=== PATIENT | male | born 1960 | race Caucasian/White ===

== ENCOUNTER 2017-01-07 07:33 | Outpatient (CLI) | payer OTHER ==
[~2017-01-07] VITALS: Ht 175.3 cm; Wt 88.6 kg
--- NOTE | ~2017-01-07 | HEMODYNAMI ---
PATIENT:COLIN STORM MEDICAL RECORD: [id number] : 60 LOCATION:D.CAT ADMISSION DATE: 01/07/17 Generatedon:01/07/201714:39 Patient name: COLIN STORM Patient #: [id number] SSN: : 1960 Date of study: 01/07/2017 Page: Of Hemodynamic Procedure Report Patient Data Patient Demographics Procedure consent was obtained First Name: COLIN Gender: Male Last Name: EMETERIO : 1960 [facility] Initial: NICOL Age: 56 year(s) Patient #: [id number] Race: Additional ID: [id number] Contact details [address]: [address] [place] [address] State: [place] City: [place] Zip code: [address] Past Medical History History of disease Date Diagnosis Comments CAD PVD Chronic lung disease->COPD Hypertension Allergies: No known allergies Admission Admission Data Admission Date: 01/07/2017 Admission Time: 7:33 Weight (lbs.): 196.21 Weight (kg.): 89 Lab Results Lab Result Date: 01/07/2017 Lab Result Time: 0:00 Biochemistry Name Units Result Min Max BUN mg/dl 16 --(---*)-- 7 18 Creatinine mg/dl 1 --(--*-)-- 0.6 1.3 CBC Name Units Result Min Max Hemoglobin g/dl 14.9 --(-*--)-- 13.5 17.5 Procedure Procedure Types Cath Procedure Diagnostic Procedure LHC LHC w/Coronaries w/Grafts Miscellaneous Procedures Moderate Sedation up to 30 minutes Peripheral Cath Diagnostic Procedure Cath Peripheral [place]-Szp-Off Peripheral vascular Intervention Stent Stent Iliac w/plasty Initial Procedure Description Procedure Date Procedure Date: 01/07/2017 Procedure Start Time: 14:07 Procedure End Time: 14:34 Procedure Staff Name Function Devon Calderón MD Performing Physician Luna Hill RN Nurse Kurt Chang RT Monitor Tl Pires RT Scrub Procedure Data Cath Procedure Fluoroscopy Diagnostic fluoroscopy Total fluoroscopy Time: 9.7 time: 9.7 min min Diagnostic fluoroscopy Total fluoroscopy dose: 847 dose: 847 mGy mGy Contrast Material Contrast Material Type Amount (ml) Isovue 300 172 Entry Location Entry Primary Successful Side Size Upsize 1 Upsize Entry Closure Munoz ccessful Closure Location (Fr) (Fr) 2 (Fr) Remarks Device Remarks Femoral Right 5 Fr 6 Fr 6 Fr Exoseal artery Mid-Length Short Diagnostic catheters Device Type Used For End Catheter Placement Cordis 5Fr 3DRC Catheter Right Coronary (MP) Angiography Diagnostic Infinity 5Fr SVG Angiography AR 2 MOD catheter Cordis 5Fr JL 4.0 Left Coronary Catheter (MP) Angiography Cordis 5Fr Pigtail LV Angiography Catheter (MP) Procedure Complications No complications Procedure Medications Medication Administration Route Dosage Oxygen NC 2 l/min Heparin Flush Bag added to field 2 bags (1000units/500ml NS) Lidocaine 2% added to field 20 Refer to Anesthesia Notes for Sedation Medications Benadryl I.V. 50 mg Heparin Bolus I.V. 4000 units Effient P.O. 10 mg Hemodynamics Rest HGB: 14.9 (g/dl) Heart Rate: 69 (bpm) Snapshots Pre Cath Intra NCS Post Cath Vital Signs Time Heart Resp SPO2 NIBP (mmHg) Rhythm Pain Sedation Rate (ipm) (%) Status Level (bpm) 13:50:23 89 25 99 186/102(154) NSR 0 (11) 10(A) , No pain 13:54:55 78 20 100 170/98(112) NSR 0 (11) 10(A) , No pain 13:59:09 93 16 91 137/76(110) NSR 0 (11) 10(A) , No pain 14:03:23 91 16 92 125/75(94) NSR 0 (11) 8(A) , No pain 14:07:33 89 14 93 128/75(89) NSR 0 (11) 6(A) , No pain 14:11:43 86 12 93 123/70(93) NSR 0 (11) 6(A) , No pain 14:15:55 87 13 93 117/69(85) NSR 0 (11) 6(A) , No pain 14:20:07 84 14 93 116/64(85) NSR 0 (11) 6(A) , No pain 14:24:20 85 15 94 104/66(79) NSR 0 (11) 6(A) , No pain 14:28:28 83 16 94 117/68(86) NSR 0 (11) 9(A) , No pain 14:33:11 78 17 98 142/78(105) NSR 0 (11) 10(A) , No pain Medications Time Medication Route Dose Verified Delivered Reason Notes Effectiveness by by 13:49:10 Oxygen NC 2 Devon Luna Per physician l/min Stephane Hill RN 13:49:20 Heparin Flush added 2 Devon Devon used for Bag to bags Stephane Calderón MD procedure (1000units/500ml field NS) 13:49:26 Lidocaine 2% added 20ml Devon Devon used for to vial Stephane Calderón MD procedure field 13:49:41 Refer to Devon Osorio for sedation Dr. Almaguer ss Anesthesia Notes Stephane Calderón MD at for Sedation bedside Medications for sedation 13:49:49 Benadryl I.V. 50 mg Devon Luna Per physician Stephane Hill RN 14:21:11 Heparin Bolus I.V. 4000 Devon Luna for dose units Stephane Hill RN anticoagulation verified with dr calderón 14:33:42 Effient P.O. 10 mg Devon Luna for Stephane Hill RN antiplatelet therapy Procedure Log Time Note 13:20:38 Kurt Chang RT(R) sent for patient. Start room use. 13:36:54 Time tracking: Regular hours 13:36:58 Plan of Care:Hemodynamics will remain stable., Cardiac rhythm will remain stable., Comfort level will be maintained., Respiratory function will remain adequate., Patient/ family verbilizes understanding of procedure., Procedure tolerated without complication., Recovers from procedure without complications.. 13:38:41 Patient Weight : 89 kg 13:40:50 Patient received from PCU to CCL 2 Alert and oriented. Tansferred to table in Supine position. 13:40:52 Warm blankets applied, and nirmala hugger turned on for patient comfort. 13:40:52 Correct patient and procedure confirmed by team. 13:40:54 Signed procedure consent form obtained from patient. 13:40:54 ECG and BP/O2 sat monitors applied to patient. 13:49:01 Vital chart was started 13:49:02 Baseline sample Acquired. 13:49:10 Oxygen 2 l/min NC was administered by Luna Hill RN; Per physician; 13:49:20 Heparin Flush Bag (1000units/500ml NS) 2 bags added to field was administered by Devon Calderón MD; used for procedure; 13:49:26 Lidocaine 2% 20ml vial added to field was administered by Devon Calderón MD; used for procedure; 13:49:41 Refer to Anesthesia Notes for Sedation Medications was administered by Devon Calderón MD; for sedation; Dr. Garrison at bedside for sedation 13:49:49 Benadryl 50 mg I.V. was administered by Luna Hill RN; Per physician; 13:55:45 Rhythm: sinus rhythm 13:55:46 Full Disclosure recording started 13:57:44 H&P Date Dictated: 01/04/2017 Within 30 days and on chart., H&P Addendum completed by physician on day of procedure. (MUST COMPLETE FOR ALL OUTPATIENTS). 13:57:46 Pre-procedure instructions explained to patient. 13:57:47 Pre-op teaching completed and patient verbalized understanding. 13:57:50 Family unavailable. 13:57:52 Patient NPO since Midnight. 13:58:04 Patient allergic to No known allergies 13:58:08 Is the patient allergic to Iodine/contrast media? No. 13:58:09 Is patient on blood thinner?Yes 13:58:12 ACC The patient was administered the following blood thiners within the last 24 hours: ACCEffient 13:58:20 Patient diabetic? No. 13:58:21 ----Pre-sedation anethsthesia assessment.---- 13:58:24 Previous problem with sedation/anesthesia? No ? 13:58:25 Snore? Yes 13:58:27 Sleep apnea? Yes 13:58:29 Deviated septum? No 13:58:32 Opens mouth fully? Yes 13:58:33 Sticks out tongue? Yes 13:58:35 Airway obstruction? No ? 13:58:37 Dentures? No ? 13:58:40 Pre procedure: right dorsailis pedis pulse 1+ Palpable, but thready & weak; easily obliterated 13:58:43 Pre procedure: left dorsailis pedis pulse 1+ Palpable, but thready & weak; easily obliterated 13:58:46 Patient pain scale 0/10 ?. 13:58:51 IV patent on arrival in left antecubital with 0.9% NaCl at 10ml/hr. 14:00:01 Lab Result : BUN 16 mg/dl 14:00:01 Lab Result : Creatinine 1 mg/dl 14:00:01 Lab Result : Hemoglobin 14.9 g/dl 14:00:04 Lab results completed and on chart. 14:00:06 Bilateral groins area was prepped with chlora-prep and draped in sterile fashion 14:00: Alarms reviewed by R. N. 14:00: Sharps counted by scrub and verified by R.N. 14:00:10 --------ALL STOP TIME OUT------ 14:00:11 Final Timeout: patient, procedure, and site verified with staff and physician. All members of the team are in agreement. 14:00:13 Bilateral groins site verified by team. 14:00:15 Physical assessment completed. ASA score P 2 - A patient with mild systemic disease as per Devon Calderón MD. 14:00:18 Sedation plan: IV Moderate Sedation Propofol 14:02:12 Use device set Femoral Dx 14:02:12 Acist Syringe opened to sterile field. 14:02:13 Bag Decanter opened to sterile field. 14:02:13 Medline Cath Pack opened to sterile field. 14:02:14 Terumo 5Fr [place] Sheath opened to sterile field. 14:02:14 [place] John 260cm J .035 wire opened to sterile field. 14:02:16 Acist Hand Control opened to sterile field. 14:02:16 Acist Manifold opened to sterile field. 14:02:16 Diagnostic Infinity 5Fr Multipack catheter opened to sterile field. 14:02:17 Tegaderm 4 x 4 opened to sterile field. 14:05:55 Procedure started. 14:07:45 Local anesthetic to right femoral artery with Lidocaine 2% by Devon Calderón MD.INITIAL ACCESS ONLY 14:07:51 A 5 Fr sheath was inserted into the Right Femoral artery 14:09:06 Terumo ANGLE 260cm glide wire opened to sterile field. 14:09:53 A Cordis 5Fr 3DRC Catheter (MP) was advanced over the wire and used for Right Coronary Angiography. 14:09:59 RCA angiography performed. 14:12:51 SHAH to LAD angiography performed. 14:12:53 Catheter removed. 14:12:59 A Diagnostic Infinity 5Fr AR 2 MOD catheter was advanced over the wire and used for SVG Angiography. 14:13:05 SVG to RCA angiography performed. 14:13:56 Catheter removed. 14:14:53 A Cordis 5Fr JL 4.0 Catheter (MP) was advanced over the wire and used for Left Coronary Angiography. 14:15:00 LCA angiography performed. 14:15:49 Catheter removed. 14:15:54 A Cordis 5Fr Pigtail Catheter (MP) was advanced over the wire and used for LV Angiography. 14:15:58 LV angiography performed. 14:16:00 LV gram done using SUN 14:16:03 Injector settings: Ml/sec: 10, Volume: 20, 14:18:00 EF : 40 % 14:18:11 Abdominal angiogram w/ runoff was performed. 14:18:14 Left leg runoff performed. 14:18:15 Right leg runoff performed. 14:18:38 Cordis 6Fr Brite Tip 35cm Sheath opened to sterile field. 14:18:53 Terumo 6Fr [place] Sheath opened to sterile field. 14:20:06 Merit BasixCompak Inflation Kit opened to sterile field. 14:20:14 [place] Sci Choice PT Extra Support J 300cm .014 gu opened to sterile field. 14:20:45 Sheath upsized to a 6 Fr Mid-Length. 14:21:11 Heparin Bolus 4000 units I.V. was administered by Luna Hill RN; for anticoagulation; dose verified with dr calderón 14:24:04 CPTES wire advanced. 14:27:11 Inflation number: 1 A Cordis Powerflex Pro 6.0 X 20 X 135 balloon was prepped and advanced across the Mid Common Iliac, Right, then inflated to 11 MADISYN for 0:11 (min:sec). 14:27:20 Inflation number: 2 The Cordis Powerflex Pro 6.0 X 20 X 135 balloon was reinflated across the Mid Common Iliac, Right, to 11 MADISYN for 0:09 (min:sec). 14:27:23 Balloon removed over the wire. 14:29:04 Inflation Number: 3 A Cordis Araceli 7 x 18 x 135 stent was prepped and advanced across the Mid Common Iliac, Right. The stent was deployed at 11 MADISYN for 0:37 (min:sec). 14:29:15 Stent catheter was removed intact over wire. 14:29:24 Wire removed. 14:29:30 Sheath upsized to a 6 Fr Short. 14::38 Contrast amount:Isovue 300 172ml. 14:29:45 Sheath removed intact; hemostasis achieved with Exoseal to the Right Femoral artery. 14:29:55 Cordis 6Fr Exoseal opened to sterile field. 14:29:58 Procedure ended.(Physican Out) 14:31:27 Procedure type changed to Cath procedure, Diagnostic procedure, LHC, LHC w/Coronaries w/Grafts, Miscellaneous Procedures, Moderate Sedation up to 30 minutes, Peripheral Cath Diagnostic Procedure, Cath Peripheral, Edyrp-Obtfgxo-Eou-Off, Peripheral vascular Intervention, Stent, Stent Iliac w/plasty Initial 14:31:34 Fluoroscopy time 09.70 minutes. 14::38 Fluoroscopy dose: 847 mGy 14::38 Flurop Dose total: 847 14:31:40 Sharps counted by scrub and verified by R.N. 14:31:41 Insertion/operative site no bleeding no hematoma. 14:31:44 Post-op/insertion site Right Femoral artery dressed using a 4 x 4 and Tegaderm. 14:31:47 Post right femoral artery:stable 14:31:48 Post Procedure Pulses reassessed and unchanged 14:31:50 Post procedure rhythm: sinus rhythm 14:31:52 Post procedure instruction explained to patient.Patient verbalizes understanding. 14:33:42 Effient 10 mg P.O. was administered by Luna Hill RN; for antiplatelet therapy; 14:33:58 Procedure and supply charges have been captured, reviewed, submitted and are correct. 14:34:03 Procedure Complication : No complications 14:34:04 Vital chart was stopped 14:34:06 See physician's report for complete and final results. 14:34:13 Report given to Pre/Post Procedure Room. 14:34:16 Patient transfered to Pre/Post Procedure Room with Stretcher. 14:34:18 Procedure ended. 14:34:18 Full Disclosure recording stopped 14:34:27 End room use (Document Last) Intervention Summary Intervention Notes Time ActionType Lesion and Equipment Action# Pressure Duration Attributes Used 14:27:11 Inflate Mid Common Cordis 1 11 00:11 balloon Iliac, Powerflex Right Pro 6.0 X 20 X 135 balloon 14:27:20 Reinflate Mid Common Cordis 2 11 00:09 balloon Iliac, Powerflex Right Pro 6.0 X 20 X 135 balloon 14:29:04 Place stent Mid Common Cordis 3 11 00:37 Iliac, Araceli 7 Right x 18 x 135 stent Device Usage Item Name Manufacture Quantity Catalog Number Hospital Part Current Minim al Lot# / Charge Number Stock Stock Serial# Code Acist Acist 1 [id number] 488913 674013 817560 20 Syringe Medical Systems Inc Bag Microtek 1 2002S 294164 91181 075185 5 [employer] Medline Cardinal 1 [id number] 272982 36748 268943 5 Cath Pack Health Terumo 5Fr Terumo 1 [id number] 168170 710526 778226 [address] [place] [address] [facility] 1 114383 670489 420718 289909 30 260cm J .035 wire Acist Hand Acist 1 91891 255776 204103 595323 5 Control Medical Systems Inc Acist Acist 1 81399 336100 829094 573928 5 Renaissance [employer] Inc Diagnostic Cardinal 1 [id number] 458394 25059 955657 30 Infinity Health 5Fr Multipack catheter Tegaderm 4 3M 1 1626W 442198 681680 103973 5 x 4 Terumo Terumo 1 [id number] 047242 879751 203777 5 ANGLE 260cm glide wire Cordis 5Fr Cardinal 1 858606 5 3DRC Health Catheter (MP) Diagnostic Cardinal 1 [id number] 808162 114625 122994 20 Infinity Health 5Fr AR 2 MOD catheter Cordis 5Fr Cardinal 1 671234 5 JL 4.0 Health Catheter (MP) Cordis 5Fr Cardinal 1 901455 5 Pigtail Health Catheter (MP) Cordis 6Fr Cardinal 1 [id number] 702393 707741 361442 1 Brite Tip Health 35cm Sheath Terumo 6Fr Terumo 1 [id number] 762971 387783 418335 40 [place] Sheath Merit Merit 1 KI3933 778609 452080 944813 15 BasixCompak Medical Inflation Kit [place] Sci [place] 1 [id number] 053361 456906 165031 5 Choice PT Scientific Extra Support J 300cm .014 gu Cordis Cardinal 1 [id number] 619712 408045 680589 5 Powerflex Health Pro 6.0 X 20 X 135 balloon Cordis Cardinal 1 [id number] 190230 469604 5 [id number] Araceli 7 x Health 18 x 135 stent Cordis 6Fr Cardinal 1 [id number] 879114 866976 630387 10 [facility] [employer] Signature Audit [place] Stage Time Signature Unsigned Intra-Procedure 01/07/2017 Kurt Chang 2:39:11 PM RT(R) Signatures Monitor : Kurt Chang RT Signature : Date : Time : [address] [place] [address]
--- NOTE | ~2017-01-07 | OP ---
PATIENT NAME: COLIN STORM MEDICAL RECORD: [id number] :60 LOCATION:D.CAT ADMISSION DATE: SURGEON: TEAGAN LEWIS MD DATE OF OPERATION: 01/07/2017 PROCEDURES: 1. Stent placement, iliac, right. 2. LOCK TECHNICIAN, iliac right. 3. Aortofemoral runoff. 4. Abdominal aortography. INDICATION: Claudication and peripheral vascular disease. PROCEDURE PERFORMED: After informed consent was obtained and after detailed explanation of the risks, benefits as well as alternative therapies, the patient elected to proceed with angiogram and angioplasty. The right femoral area was prepped and draped in normal sterile fashion. The right femoral artery was cannulated via modified Seldinger technique with placement of a 6-Guinean sheath. All catheters were exchanged through this sheath. FINDINGS: The abdominal aortography was performed. The catheter was pulled down for aortofemoral runoff. Abdominal aortography reveals no significant abdominal aortic disease. No dissection or aneurysm formation. RIGHT LEG: A. Iliac: The common iliac is closed. There is an aortobifemoral graft. There is a stent in this graft that is 90% stenosed. B. Femoral system: The common superficial and deep femoral have moderate irregularities, but no flow-limiting stenosis. No significant disease of the SFA. C. Popliteal and infrapopliteal vessels: Patent with good 3-vessel runoff to the foot. LEFT LEG: A. Iliac: The common internal and external iliacs are closed. There is an aortofemoral graft, this is widely patent. B. Femoral system: The common superficial and deep femoral have moderate irregularities, but no flow-limiting stenosis. Previously placed stent is widely patent. C. Popliteal and infrapopliteal vessels: With 3-vessel runoff to the foot. STENT PLACEMENT, ILIAC RIGHT. We were able to get a 6.0 balloon and a ____ Cordis Araceli balloon expandable stent into this area of stenosis. Result was 0% residual stenosis. OVERALL IMPRESSION: Successful percutaneous transluminal angioplasty stent of the right iliac going from 90% initial stenosis to 0% residual. TRANSINT:[id number] Voice Confirmation ID: [id number] DOCUMENT ID: [id number] OPERATIVE REPORT [id number] COLIN STORM TEAGAN LEWIS MD CC: [id number] DICTATION DATE: 01/07/17 1434 BATCH AND FURNACE MANAGER: 01/08/17 0030 DEP CLI 05/19/17 [facility] [address] [place] [address]
--- NOTE | ~2017-01-07 | OP ---
PATIENT NAME: COLIN STORM MEDICAL RECORD: [id number] :60 LOCATION:D.CAT ADMISSION DATE: SURGEON: TEAGAN LEWIS MD DATE OF OPERATION: 01/07/2017 PROCEDURES: 1. Left heart catheterization. 2. Selective coronary angiography. 3. SHAH angiography. 4. Vein graft angiography. INDICATION: Angina and coronary artery disease. DESCRIPTION OF PROCEDURE: After informed consent was obtained and after detailed explanation of risks, benefits as well as alternative therapies, the patient elected to proceed with angiogram and heart catheterization. The right femoral area was prepped and draped in normal sterile fashion. The right femoral artery was cannulated via modified Seldinger technique with placement of a 6-Zambian sheath. All catheters were exchanged through this sheath. FINDINGS: Left ventriculogram was performed in standard 30-degree SUN view, reveals preserved cardiac wall motion, ejection fraction 55%. SELECTIVE CORONARY ANGIOGRAPHY: 1. Left main showed no significant angiographic disease. 2. Left circumflex is closed. 3. Vein graft to the circumflex is closed. 4. Left anterior descending is closed in the mid vessel. 5. SHAH to the distal LAD is widely patent. 6. The right coronary is closed in the mid vessel. 7. Vein graft to the right coronary is widely patent. Distal right coronary is widely patent. Overall, this angiography is unchanged from previous angiography. OVERALL IMPRESSION: Wide patency of the SHAH to the LAD and vein graft to the RCA with total occlusion of the lytton circumflex and vein graft to the circumflex. Continue medical management of the coronary artery disease and cardiac risk factors. TRANSINT:[id number] Voice Confirmation ID: [id number] DOCUMENT ID: [id number] TEAGAN LEWIS MD CC: [id number] DICTATION DATE: 01/07/171433 OVEREDGE SEWER: 01/07/172230 DEP CLI 01/07/17 [facility] [address] [place] [address]
[~2017-01-07 07:33] MED LIST: ASPIRIN325 MG PO; CORDARONE200 MG PO; DURAGESIC1 PATCH .7; DURAGESIC1 PATCH .7 TRANSDERM; EFFIENT10 MG PO; HYDROCODONE-APA1 TAB PO; IPRAT-ALBUT 0.5-3 ML UPD; ISOSORBIDE MONO60 M1 PO; K-TAB10 MEQ PO; LANOXIN250 MCG PO; LASIX40 MG PO; LOPRESSOR50 MG PO; METOPROLOL TART50 MG PO; NEXIUM PO; NEXIUM20 MG PO; NORVASC10 MG PO; PERCOCET 5-3251 TAB PO; PLAVIX75 MG PO; PRAVACHOL80 MG PO; PRAVASTATIN PO; PREDNISONE20 MG PO; PRILOSEC20 MG PO; RANEXA500 MG PO; RENEXA PO; TOPROL XL25 MG PO; TOPROL XL50 MG PO
[2017-01-07 08:21] VITALS: BP 161/81; Ht 175.3 cm; Wt 88.6 kg
[2017-01-07 08:30] LABS: BASOPHILS 0.3 % (0-2); EOSINOPHILS 1.4 % (0-7); HEMATOCRIT 45.4 % (42.0-54.0); HEMOGLOBIN 14.9 g/dL (13.5-17.5); IMMATURE GRANULOCYTES 0.2 % (0-5); LYMPHOCYTES 26.8 % (15-50); MCH 27.7 pg (26.0-34.0); MCHC 32.8 g/dL (31.0-37.0); MCV 84.5 fL (80.0-100.0); MEAN PLATELET VOLUME 10.2 fL (7.4-10.4); MONOCYTES 7.1 % (2-11); NEUTROPHILS 64.2 % (40-80); PLATELET COUNT 175 10x3/uL (130-400); RBC 5.37 10x6/uL (4.20-6.10); RDW 13.9 % (11.5-14.5); WBC 9.4 10x3/uL (4.8-10.8)
[2017-01-07] MEDS ORDERED: PRILOSEC PO (08:33)
[2017-01-07] MEDS ORDERED: PRAVACHOL80 MG PO (08:34)
[2017-01-07 09:01] LABS: CALC OSMOLALITY 279 mosm/kg (275-300); CALCIUM 9.8 mg/dL (8.5-10.1); CARBON DIOXIDE 27.2 mmol/L (21.0-32.0); CHLORIDE - SERUM 103 mmol/L (98-107); GLUCOSE 122 mg/dL (74-106); POTASSIUM - SERUM 4.4 mmol/L (3.5-5.1); SODIUM 139 mmol/L (136-145); UREA NITROGEN 16 mg/dL (7-18); eGFR NON AFRICAN AMERICAN 82 mL/min (90-120)
--- NOTE | 2017-01-07 15:24 | NUR ---
1510 LYING FLAT, EYES CLOSED. ROOM AIR WITH NO RESP DISTRESS. NSR RATE 70 W NO C/O CHEST PAIN. PULSES PALP X 4. R GROIN 6F EXOSEAL C/D/I WITH NO HEMATOMA OR BLEEDING.
--- NOTE | 2017-01-07 16:52 | NUR ---
1540 ALL VITALS WNL, NSR MARY 81 W NO C/O CHEST PAIN. PULSES PALP X 4. ROOM AIR. R GROI REMAINS C/D/I WITH NO HEMATOMA OR BLEEDING. VOIDED 400CC VIA URINAL. 1640 SLEEPING, AT BEDSIDE, R GROIN REMAINS C/D/I.
--- NOTE | 2017-01-07 17:45 | NUR ---
HOB ELEVATED 30 DEGREES. RIGHT GROIN DRSG CDI, NO BLEEDING NOTED. SANDWICH TRAY AND SPRITE GIVEN.
--- NOTE | 2017-01-07 18:11 | NUR ---
LEFT HAND PIV D/C'D WITH CATHETER INTACT, BAND AID TO SITE. UP TO BEDSIDE TO GET DRESSED.
--- NOTE | 2017-01-07 18:20 | NUR ---
UP TO RESTROOM TO VOID.
--- NOTE | 2017-01-07 18:24 | NUR ---
DISCHARGE INSTRUCTIONS GIVEN, VERBALIZED UNDERSTANDING.
--- NOTE | 2017-01-07 18:27 | NUR ---
TAKEN OUT VIA WHEELCHAIR BY CATH COOK'S ASSISTANT. LEFT FACILITY WITH FAMILY MEMBER AND ALL PERSONAL BELONGINGS.
== END 2017-01-07 18:28 | disposition home or self-care (01) ==
LOC: D.CATH 07:33
PROVIDERS: Internal Medicine Interventional Cardiology
DX: I25.119 Atherosclerotic heart disease of native coronary artery with unspecified angina pectoris (principal); I25.719 Atherosclerosis of autologous vein coronary artery bypass graft(s) with unspecified angina pectoris; I70.211 Atherosclerosis of native arteries of extremities with intermittent claudication, right leg

== ENCOUNTER 2017-03-30 10:44 | Emergency (ER) | payer OTHER ==
[2017-01-07 08:21] VITALS: BMI 28.8
[~2017-03-30 10:44] MED LIST changes: +PRILOSEC PO
[2017-03-30 11:47] LABS: BASOPHILS 0.2 % (0-2); EOSINOPHILS 0.5 % (0-7); HEMATOCRIT 43.1 % (42.0-54.0); HEMOGLOBIN 13.9 g/dL (13.5-17.5); IMMATURE GRANULOCYTES 0.2 % (0-5); LYMPHOCYTES 16.8 % (15-50); MCH 26.8 pg (26.0-34.0); MCHC 32.3 g/dL (31.0-37.0); MONOCYTES 7.4 % (2-11); NEUTROPHILS 74.9 % (40-80); PLATELET COUNT 151 10x3/uL (130-400); RBC 5.19 10x6/uL (4.20-6.10); WBC 8.7 10x3/uL (4.8-10.8)
[2017-03-30 11:59] LABS: ALBUMIN 3.3 g/dL (3.4-5.0); ALKALINE PHOSPHATASE 105 U/L (46-116); ALT (SGPT) 22 U/L (10-68); BILIRUBIN - TOTAL 0.43 mg/dL (0.2-1.3); C-REACTIVE PROTEIN 1.5 mg/dL (0.0-0.9); CALC OSMOLALITY 279 mosm/kg (275-300); CALCIUM 8.6 mg/dL (8.5-10.1); CARBON DIOXIDE 28.6 mmol/L (21.0-32.0); CHLORIDE - SERUM 104 mmol/L (98-107); CREATININE - SERUM 0.8 mg/dL (0.6-1.3); GLUCOSE 133 mg/dL (74-106); MAGNESIUM - SERUM 1.9 mg/dL (1.8-2.4); POTASSIUM - SERUM 4.3 mmol/L (3.5-5.1); PROTEIN - SERUM 7.2 g/dL (6.4-8.2); SODIUM 139 mmol/L (136-145); UREA NITROGEN 12 mg/dL (7-18); eGFR NON AFRICAN AMERICAN > 90 mL/min (90-120)
== END 2017-03-30 14:03 | disposition home or self-care (01) ==
LOC: D.ER 10:44
PROVIDERS: Emergency Medicine
DX: R42 Dizziness and giddiness (principal); R11.10 Vomiting, unspecified; I10 Essential (primary) hypertension; Z95.1 Presence of aortocoronary bypass graft; Z95.5 Presence of coronary angioplasty implant and graft; R00.1 Bradycardia, unspecified; R94.31 Abnormal electrocardiogram [ECG] [EKG]

== ENCOUNTER → 2017-07-11 12:47 | Outpatient (CLI) | payer OTHER ==
[2017-01-07 08:21] VITALS: BMI 28.8
== END | disposition home or self-care (01) ==
LOC: D.US 12:47
DX: Z86.73 Personal history of transient ischemic attack (TIA), and cerebral infarction without residual deficits (principal)

== ENCOUNTER 2018-03-29 01:04 | Inpatient (IN) | payer OTHER ==
[2018-03-29] VITALS (7 sets, daily range): BP systolic 133–152; BP diastolic 68–78; BMI 28.8
[~2018-03-29] VITALS: Ht 175.3 cm; Wt 88.3 kg
[2018-03-29 01:45] LABS: BASOPHILS 0.2 % (0-2); EOSINOPHILS 0.7 % (0-7); HEMATOCRIT 40.7 % (42.0-54.0); HEMOGLOBIN 13.4 g/dL (13.5-17.5); IMMATURE GRANULOCYTES 0.2 % (0-5); LYMPHOCYTES 24.4 % (15-50); MCH 26.6 pg (26.0-34.0); MCHC 32.9 g/dL (31.0-37.0); MCV 80.9 fL (80.0-100.0); MEAN PLATELET VOLUME 9.5 fL (7.4-10.4); MONOCYTES 8.7 % (2-11); NEUTROPHILS 65.8 % (40-80); PLATELET COUNT 140 10x3/uL (130-400); RBC 5.03 10x6/uL (4.20-6.10); RDW 14.8 % (11.5-14.5); WBC 9.4 10x3/uL (4.8-10.8)
[2018-03-29 01:52] LABS: APTT 28.2 SECONDS (22.8-39.4); INR 1.07 (0.85-1.17); PROTIME 13.5 SECONDS (11.6-15.0)
[2018-03-29 01:56] LABS: ALBUMIN 3.5 g/dL (3.4-5.0); ALKALINE PHOSPHATASE 106 U/L (46-116); ALT (SGPT) 28 U/L (10-68); BILIRUBIN - TOTAL 0.55 mg/dL (0.2-1.3); CALC OSMOLALITY 282 mosm/kg (275-300); CALCIUM 8.5 mg/dL (8.5-10.1); CARBON DIOXIDE 30.1 mmol/L (21.0-32.0); CHLORIDE - SERUM 104 mmol/L (98-107); CREATININE - SERUM 0.8 mg/dL (0.6-1.3); GLUCOSE 123 mg/dL (74-106); PROTEIN - SERUM 7.1 g/dL (6.4-8.2); SODIUM 141 mmol/L (136-145); UREA NITROGEN 16 mg/dL (7-18); eGFR NON AFRICAN AMERICAN > 90 mL/min (90-120)
[2018-03-29 02:05] LABS: AMYLASE - SERUM 189 U/L (25-115); CREATINE KINASE 70 UL (21-232); LIPASE 1442 U/L (73-393)
[2018-03-29 02:08] LABS: TROPONIN-I < 0.017 ng/mL (0.000-0.060)
[2018-03-29 05:56] LABS: BASOPHILS 0.2 % (0-2); EOSINOPHILS 0.5 % (0-7); HEMATOCRIT 39.7 % (42.0-54.0); HEMOGLOBIN 12.7 g/dL (13.5-17.5); IMMATURE GRANULOCYTES 0.2 % (0-5); LYMPHOCYTES 30.5 % (15-50); MCH 26.2 pg (26.0-34.0); MCV 81.9 fL (80.0-100.0); MEAN PLATELET VOLUME 9.9 fL (7.4-10.4); MONOCYTES 9.3 % (2-11); NEUTROPHILS 59.3 % (40-80); PLATELET COUNT 140 10x3/uL (130-400); RBC 4.85 10x6/uL (4.20-6.10); WBC 9.7 10x3/uL (4.8-10.8)
[2018-03-29 06:43] LABS: ALBUMIN 3.3 g/dL (3.4-5.0); ALKALINE PHOSPHATASE 133 U/L (46-116); CALC OSMOLALITY 283 mosm/kg (275-300); CALCIUM 7.8 mg/dL (8.5-10.1); CARBON DIOXIDE 28.2 mmol/L (21.0-32.0); CHLORIDE - SERUM 106 mmol/L (98-107); CREATININE - SERUM 0.9 mg/dL (0.6-1.3); GLUCOSE 130 mg/dL (74-106); PROTEIN - SERUM 6.7 g/dL (6.4-8.2); SODIUM 141 mmol/L (136-145); UREA NITROGEN 15 mg/dL (7-18); eGFR NON AFRICAN AMERICAN > 90 mL/min (90-120)
[2018-03-29 07:06] LABS: CKMB 0.8 U/L (0.0-3.6); CREATINE KINASE 65 UL (21-232)
[2018-03-29 07:08] LABS: TROPONIN-I < 0.017 ng/mL (0.000-0.060)
[2018-03-29 07:36] LABS: ALT (SGPT) 51 U/L (10-68); AMYLASE - SERUM 353 U/L (25-115)
[2018-03-29 07:55] LABS: LIPASE 4456 U/L (73-393)
[2018-03-29 12:24] LABS: CKMB 1.1 U/L (0.0-3.6); CREATINE KINASE 61 UL (21-232)
[2018-03-29 12:25] LABS: TROPONIN-I < 0.017 ng/mL (0.000-0.060)
[2018-03-29 19:00] LABS: CREATINE KINASE 56 UL (21-232); TROPONIN-I < 0.017 ng/mL (0.000-0.060)
[2018-03-30 06:11] VITALS: BP 152/70
[2018-03-30 06:16] LABS: BASOPHILS 0.3 % (0-2); EOSINOPHILS 1.2 % (0-7); HEMATOCRIT 37.2 % (42.0-54.0); HEMOGLOBIN 11.9 g/dL (13.5-17.5); IMMATURE GRANULOCYTES 0.2 % (0-5); LYMPHOCYTES 24.9 % (15-50); MCH 26.6 pg (26.0-34.0); MCV 83.2 fL (80.0-100.0); MEAN PLATELET VOLUME 10.5 fL (7.4-10.4); NEUTROPHILS 64.4 % (40-80); PLATELET COUNT 129 10x3/uL (130-400); RBC 4.47 10x6/uL (4.20-6.10); RDW 15.1 % (11.5-14.5)
[2018-03-30 06:20] LABS: WBC 6.6 10x3/uL (4.8-10.8)
[2018-03-30 06:40] LABS: ALKALINE PHOSPHATASE 125 U/L (46-116); ALT (SGPT) 45 U/L (10-68); BILIRUBIN - TOTAL 0.65 mg/dL (0.2-1.3); CALCIUM 7.8 mg/dL (8.5-10.1); CARBON DIOXIDE 28.8 mmol/L (21.0-32.0); CHLORIDE - SERUM 107 mmol/L (98-107); CREATININE - SERUM 0.7 mg/dL (0.6-1.3); LIPASE 178 U/L (73-393); POTASSIUM - SERUM 3.8 mmol/L (3.5-5.1); PROTEIN - SERUM 6.2 g/dL (6.4-8.2); SODIUM 140 mmol/L (136-145); eGFR NON AFRICAN AMERICAN > 90 mL/min (90-120)
[2018-03-30 06:49] LABS: AMYLASE - SERUM 82 U/L (25-115); CALC OSMOLALITY 276 mosm/kg (275-300); GLUCOSE 80 mg/dL (74-106); UREA NITROGEN 11 mg/dL (7-18)
[2018-03-30 08:27] VITALS: BP 154/74
[2018-03-30 11:33] VITALS: BP 153/77
[2018-03-30 12:49] VITALS: Ht 175.3 cm; Wt 88.3 kg
[2018-03-30 16:14] VITALS: BP 160/71
[2018-03-30 21:27] VITALS: BP 106/70
[2018-03-31 02:05] VITALS: BP 160/69
[2018-03-31 04:00] VITALS: BP 154/67
[2018-03-31 05:29] LABS: BASOPHILS 0.2 % (0-2); EOSINOPHILS 1.5 % (0-7); HEMATOCRIT 35.8 % (42.0-54.0); HEMOGLOBIN 11.5 g/dL (13.5-17.5); LYMPHOCYTES 31.4 % (15-50); MCH 26.3 pg (26.0-34.0); MCHC 32.1 g/dL (31.0-37.0); MCV 81.9 fL (80.0-100.0); MEAN PLATELET VOLUME 10.4 fL (7.4-10.4); MONOCYTES 8.9 % (2-11); PLATELET COUNT 132 10x3/uL (130-400); RBC 4.37 10x6/uL (4.20-6.10); RDW 14.8 % (11.5-14.5); WBC 5.9 10x3/uL (4.8-10.8)
[2018-03-31 05:48] LABS: ALBUMIN 2.9 g/dL (3.4-5.0); ALKALINE PHOSPHATASE 148 U/L (46-116); ALT (SGPT) 39 U/L (10-68); AMYLASE - SERUM 56 U/L (25-115); BILIRUBIN - TOTAL 0.56 mg/dL (0.2-1.3); CALC OSMOLALITY 278 mosm/kg (275-300); CARBON DIOXIDE 29.9 mmol/L (21.0-32.0); CHLORIDE - SERUM 108 mmol/L (98-107); CHOL - HDL RATIO 4.7 ratio (2.3-4.9); CHOLESTEROL, TOTAL 149 mg/dL (0-200); CREATININE - SERUM 0.8 mg/dL (0.6-1.3); GLUCOSE 95 mg/dL (74-106); HDL CHOLESTEROL 32 mg/dL (32-96); LDL CHOLESTEROL 101 mg/dL (0-100); LDL-HDL RATIO 3.2 ratio (1.5-3.5); LIPASE 189 U/L (73-393); POTASSIUM - SERUM 3.8 mmol/L (3.5-5.1); PROTEIN - SERUM 6.1 g/dL (6.4-8.2); SODIUM 141 mmol/L (136-145); TRIGLYCERIDE 83 mg/dL (30-200); UREA NITROGEN 8 mg/dL (7-18); eGFR NON AFRICAN AMERICAN > 90 mL/min (90-120)
[2018-03-31 08:03] VITALS: BP 171/81
[2018-03-31 15:21] VITALS: BP 176/77
[2018-03-31 21:20] VITALS: BP 167/79
[2018-04-01] VITALS (7 sets, daily range): BP systolic 134–175; BP diastolic 57–79
[2018-04-01 06:03] LABS: BASOPHILS 0.4 % (0-2); EOSINOPHILS 0.9 % (0-7); HEMATOCRIT 35.7 % (42.0-54.0); HEMOGLOBIN 11.4 g/dL (13.5-17.5); IMMATURE GRANULOCYTES 0.2 % (0-5); LYMPHOCYTES 29.2 % (15-50); MCH 26.1 pg (26.0-34.0); MCHC 31.9 g/dL (31.0-37.0); MCV 81.7 fL (80.0-100.0); MEAN PLATELET VOLUME 10.5 fL (7.4-10.4); MONOCYTES 9.4 % (2-11); NEUTROPHILS 59.9 % (40-80); PLATELET COUNT 137 10x3/uL (130-400); RBC 4.37 10x6/uL (4.20-6.10); RDW 14.9 % (11.5-14.5); WBC 5.7 10x3/uL (4.8-10.8)
[2018-04-01 06:40] LABS: ALBUMIN 2.9 g/dL (3.4-5.0); ALKALINE PHOSPHATASE 140 U/L (46-116); ALT (SGPT) 38 U/L (10-68); AMYLASE - SERUM 44 U/L (25-115); BILIRUBIN - TOTAL 0.56 mg/dL (0.2-1.3); CALC OSMOLALITY 281 mosm/kg (275-300); CALCIUM 7.8 mg/dL (8.5-10.1); CARBON DIOXIDE 27.3 mmol/L (21.0-32.0); CHLORIDE - SERUM 108 mmol/L (98-107); CREATININE - SERUM 0.9 mg/dL (0.6-1.3); GLUCOSE 85 mg/dL (74-106); LIPASE 172 U/L (73-393); POTASSIUM - SERUM 3.6 mmol/L (3.5-5.1); PROTEIN - SERUM 6.1 g/dL (6.4-8.2); SODIUM 143 mmol/L (136-145); UREA NITROGEN 7 mg/dL (7-18); eGFR NON AFRICAN AMERICAN > 90 mL/min (90-120)
[2018-04-02 05:42] LABS: BASOPHILS 0.3 % (0-2); EOSINOPHILS 2.2 % (0-7); HEMATOCRIT 35.2 % (42.0-54.0); HEMOGLOBIN 11.4 g/dL (13.5-17.5); IMMATURE GRANULOCYTES 0.3 % (0-5); LYMPHOCYTES 27.2 % (15-50); MCH 26.3 pg (26.0-34.0); MCHC 32.4 g/dL (31.0-37.0); MCV 81.1 fL (80.0-100.0); MEAN PLATELET VOLUME 10.2 fL (7.4-10.4); MONOCYTES 9.1 % (2-11); NEUTROPHILS 60.9 % (40-80); PLATELET COUNT 158 10x3/uL (130-400); RBC 4.34 10x6/uL (4.20-6.10); RDW 14.8 % (11.5-14.5); WBC 6.7 10x3/uL (4.8-10.8)
[2018-04-02 06:23] LABS: ALBUMIN 2.9 g/dL (3.4-5.0); ALKALINE PHOSPHATASE 139 U/L (46-116); ALT (SGPT) 30 U/L (10-68); BILIRUBIN - TOTAL 0.61 mg/dL (0.2-1.3); CALC OSMOLALITY 279 mosm/kg (275-300); CALCIUM 8.2 mg/dL (8.5-10.1); CARBON DIOXIDE 27.5 mmol/L (21.0-32.0); CHLORIDE - SERUM 107 mmol/L (98-107); CREATININE - SERUM 0.8 mg/dL (0.6-1.3); GLUCOSE 86 mg/dL (74-106); POTASSIUM - SERUM 3.3 mmol/L (3.5-5.1); PROTEIN - SERUM 6.1 g/dL (6.4-8.2); SODIUM 142 mmol/L (136-145); UREA NITROGEN 6 mg/dL (7-18); eGFR NON AFRICAN AMERICAN > 90 mL/min (90-120)
[2018-04-02] MEDS ORDERED: PEPCID40 MG PO (11:01)
[2018-04-02] MEDS ORDERED: CARAFATE1 G/10 ML PO (11:01)
== END 2018-04-02 15:33 | disposition home or self-care (01) | DRG 380 ==
LOC: D.ER 01:04 → D.M2 05:31 → D.EDHOLD 05:31 → D.M2 13:49
PROVIDERS: Family Medicine; Family Medicine Adult Medicine; Internal Medicine Gastroenterology
PROC: 0DD68ZX Extraction of Stomach, Via Natural or Artificial Opening Endoscopic, Diagnostic (ICD-10-PCS; principal; 2018-04-01 09:30)
DX: K22.10 Ulcer of esophagus without bleeding (principal); K85.90 Acute pancreatitis without necrosis or infection, unspecified; I25.10 Atherosclerotic heart disease of native coronary artery without angina pectoris; I10 Essential (primary) hypertension; I73.9 Peripheral vascular disease, unspecified; E78.5 Hyperlipidemia, unspecified; E86.0 Dehydration; K22.70 Barrett's esophagus without dysplasia; K44.9 Diaphragmatic hernia without obstruction or gangrene; R91.1 Solitary pulmonary nodule; K57.90 Diverticulosis of intestine, part unspecified, without perforation or abscess without bleeding; Z95.1 Presence of aortocoronary bypass graft; Z86.73 Personal history of transient ischemic attack (TIA), and cerebral infarction without residual deficits; K25.9 Gastric ulcer, unspecified as acute or chronic, without hemorrhage or perforation

== ENCOUNTER 2018-05-31 09:18 | Outpatient (CLI) | payer OTHER ==
[~2018-05-31] VITALS: Ht 175.3 cm; Wt 86.4 kg
--- NOTE | ~2018-05-31 | HEMODYNAMI ---
PATIENT:COLIN STORM MEDICAL RECORD: [id number] : 60 LOCATION:D.CAT ADMISSION DATE: 05/31/18 Generatedon:05/31/201811:54 Patient name: COLIN STORM Patient #: [id number] SSN: : 1960 Date of study: 05/31/2018 Page: Of Hemodynamic Procedure Report Patient Data Patient Demographics Procedure consent was obtained First Name: COLIN Gender: Male Last Name: EMETERIO : 1960 [facility] Initial: NICOL Age: 58 year(s) Patient #: [id number] Race: Additional ID: [id number] Contact details [address]: [address] [place] [address] State: [place] City: [place] Zip code: [address] Past Medical History History of disease Date Diagnosis Comments CAD PVD Chronic lung disease->COPD Hypertension Allergies: No known allergies Admission Admission Data Admission Date: 05/31/2018 Admission Time: 9:18 Procedure Procedure Types Cath Procedure Peripheral Cath Diagnostic Procedure Vendor Representatives Peripheral Procedures Ldrxt-Kxqqdvj-Xet-Off UI SOFTWARE ENGINEER/STENT Peripheral Procedure Description Procedure Date Procedure Date: 05/31/2018 Procedure Start Time: 11:12 Procedure End Time: 11:50 Procedure Staff Name Function Devon Calderón MD Performing Physician Fabiana Robison RT Monitor Radha Patel RT Scrub Andres Nassar RN Nurse Dee Kapadia RN Nurse Gianna Pickard RN Nurse Mario Chang RT Commercial Green Building Architect Rainer Brandon MD Additional personnel Procedure Data Cath Procedure Fluoroscopy Diagnostic fluoroscopy Total fluoroscopy Time: 7.5 time: 7.5 min min Diagnostic fluoroscopy Total fluoroscopy dose: 534 dose: 534 mGy mGy Contrast Material Contrast Material Type Amount (ml) Isovue 300 97 Entry Location Entry Primary Successful Side Size Upsize 1 Upsize Entry Closure Munoz ccessful Closure Location (Fr) (Fr) 2 (Fr) Remarks Device Remarks Femoral Right 5 Fr 6 Fr 6 Fr Exoseal artery Mid-Length Short Estimated blood loss: 10 ml Diagnostic catheters Device Type Used For End Catheter Placement DIAGNOSTIC Pigtail 5Fr Procedure catheter ([id number]) Procedure Complications No complications Procedure Medications Medication Administration Route Dosage Heparin Bolus I.V. 4000 units Oxygen etCO2 Nasal cannula 6 l/min Heparin Flush Bag added to field 2 bags (1000units/500ml NS) 0.9% NaCl I.V. 100 ml/hr Refer to Anesthesia Notes for Sedation Medications Hemodynamics Rest Heart Rate: 61 (bpm) Snapshots Pre Cath Intra NCS Post Cath Vital Signs Time Heart Resp SPO2 etCO2 NIBP (mmHg) Rhythm Pain Sedation Rate (ipm) (%) (mmHg) Status Level (bpm) 10:52:52 61 17 99 0 172/99(143) NSR 0 (11) 10(A) , No pain 10:57:20 70 17 98 0 165/87(111) NSR 0 (11) 10(A) , No pain 11:03:00 70 16 100 0 166/82(105) NSR 0 (11) 10(A) , No pain 11:07:20 77 17 94 0 124/76(100) NSR 0 (11) 10(A) , No pain 11:11:40 72 17 98 0 119/67(99) NSR 0 (11) 10(A) , No pain 11:15:56 75 16 99 16.4 133/73(96) NSR 0 (11) 10(A) , No pain 11:20:16 68 17 99 35 136/76(99) NSR 0 (11) 10(A) , No pain 11:24:32 77 16 98 14.1 134/73(98) NSR 0 (11) 10(A) , No pain 11:28:44 86 16 98 0 113/72(92) NSR 0 (11) 9(A) , No pain 11:33:00 83 17 96 0 114/63(87) NSR 0 (11) 9(A) , No pain 11:37:16 85 17 96 0 108/57(81) NSR 0 (11) 9(A) , No pain 11:41:28 75 16 98 0 111/60(77) NSR 0 (11) 9(A) , No pain 11:45:46 77 16 96 0 101/53(74) NSR 0 (11) 9(A) , No pain 11:49:58 71 19 97 0 109/56(87) NSR 0 (11) 9(A) , No pain 11:51:59 73 16 97 0 111/66(85) NSR 0 (11) 9(A) , No pain Medications Time Medication Route Dose Verified Delivered Reason Notes Effectiveness by by 11:32:52 Heparin Bolus I.V. 4000 Devon Campos for units Stephane Nassar RN anticoagulation 11:33:40 Oxygen etCO2 6 Devon Campos Per physician Nasal l/min Stephane Nassar RN cannula 11:33:58 Heparin Flush added 2 Devon Campos used for Bag to bags Stephane Nassar RN procedure (1000units/500ml field NS) 11:34:08 0.9% NaCl I.V. 100 Devon Campos Per physician ml/hr Stephane Nassar RN 11:34:18 Refer to Devon Campos Per physician Anesthesia Notes Stephane Nassar RN for Sedation Medications Procedure Log Time Note 10:30:57 Mario Suit RT(R) sent for patient. Start room use. 10:44:58 Time tracking: Regular hours (M-F 7:00 - 5:00) 10:45:04 Plan of Care:Hemodynamics will remain stable., Cardiac rhythm will remain stable., Comfort level will be maintained., Respiratory function will remain adequate., Patient/ family verbilizes understanding of procedure., Procedure tolerated without complication., Recovers from procedure without complications.. 10:45:09 Patient received from Pre/Post Procedure Room to CCL 1 Alert and oriented. Tansferred to table in Supine position. 10:45:10 Warm blankets applied, and nirmala hugger turned on for patient comfort. 10:45:11 Correct patient and procedure confirmed by team. 10:45:12 Signed procedure consent form obtained from patient. 10:45:13 ECG and BP/O2 sat monitors applied to patient. 10:51:28 Baseline sample Acquired. 10:51:28 Vital chart was started 10:51:32 Rhythm: sinus rhythm 10:51:34 Full Disclosure recording started 10:51:38 H&P Date Dictated: 05/31/2018 Within 30 days and on chart., H&P Addendum completed by physician on day of procedure. (MUST COMPLETE FOR ALL OUTPATIENTS). 10:51:40 Pre-procedure instructions explained to patient. 10:51:40 Pre-op teaching completed and patient verbalized understanding. 10:51:41 Family in waiting room. 10:51:43 Patient NPO since Midnight. 10:51:45 Is the patient allergic to Iodine/contrast media? No. 10:51:46 Was the patient premedicated? No 10:51:50 Is patient on blood thinner?Yes 10:51:54 ACC The patient was administered the following blood thiners within the last 24 hours: ACCEffient 10:51:57 Patient diabetic? No. 10:51:59 Previous problem with sedation/anesthesia? No ? 10:52:06 Snore? Yes 10:52:07 Sleep apnea? Yes 10:52:09 Deviated septum? No 10:52:11 Opens mouth fully? Yes 10:52:11 Sticks out tongue? Yes 10:52:14 Airway obstruction? No ? 10:52:16 Dentures? No ? 10:52:21 Pre procedure: right dorsailis pedis pulse 1+ Palpable, but thready & weak; easily obliterated 10:52:23 Pre procedure: left dorsailis pedis pulse 1+ Palpable, but thready & weak; easily obliterated 10:52:26 Patient pain scale 0/10 ?. 10:52:33 IV patent on arrival in left forearm with 0.9% NaCl at [facility]. 10:52:36 Lab results completed and on chart. 10:52:42 Bilateral groins area was prepped with chlora-prep and draped in sterile fashion 10:52:43 Alarms reviewed by R. N. 10:52:43 Sharps counted by scrub and verified by R.N. 11:00:41 Physician paged 11:01:29 Rainer Brandon MD present and monitoring patient for TIVA. 11:06:18 Zero performed for pressure channel P1 11:06:24 Zero performed for pressure channel P1 11:06:37 Zero performed for pressure channel P1 11:06:48 Physician arrived 11:06:48 --------ALL STOP TIME OUT------ 11:06:49 Final Timeout: patient, procedure, and site verified with staff and physician. All members of the team are in agreement. 11:10:15 Bilateral groins site verified by team. 11:10:31 Use device set Femoral Dx 11:10:34 ACIST Syringe (21901) opened to sterile field. 11:10:35 Bag Decanter (2001S) opened to sterile field. 11:10:35 Medline Cath Pack ([id number]) opened to sterile field. 11:10:36 DIAGNOSTIC WIRE .035 260cm J wire ([id number]) opened to sterile field. 11:10:38 ACIST Hand Control (42284) opened to sterile field. 11:10:38 ACIST Manifold (13370) opened to sterile field. 11:10:42 PERCUTANEOUS ENTRY 19GA needle opened to sterile field. 11:10:45 SHEATH Prelude 5Fr 0.035 (PMB-2Y-84-035) opened to sterile field. 11:10:55 Procedure started. 11:12:17 Local anesthetic to left femerol artery with Lidocaine 2% by Devon Calderón MD.INITIAL ACCESS ONLY 11:14:22 MAGIC TORQUE 180cm 0.035 wire ([id number]) opened to sterile field. 11:15:42 magic torque inserted and could not cross left illiac wire removed 11:20:58 MAGIC TORQUE 180cm 0.035 wire ([id number]) opened to sterile field. 11:21:19 New magic torque. last wire damaged 11:21:35 Local anesthetic to right femoral artery with Lidocaine 1% w/epi by Devon Calderón MD.ADDITIONAL ACCESS 11:24:50 A 5 Fr sheath was inserted into the Right Femoral artery 11:28:48 A DIAGNOSTIC Pigtail 5Fr catheter ([id number]) was advanced over the wire and used for Procedure. 11:28:57 Left leg runoff performed. 11:28:58 Right leg runoff performed. 11:32:20 SHEATH 6FR Brite Tip 35cm ([id number]) opened to sterile field. 11:32:36 Sheath upsized to a 6 Fr Mid-Length. 11:32:52 Heparin Bolus 4000 units I.V. was administered by Andres Nassar RN; for anticoagulation; 11:33:40 Oxygen 6 l/min etCO2 Nasal cannula was administered by Andres Nassar RN; Per physician; 11:33:58 Heparin Flush Bag (1000units/500ml NS) 2 bags added to field was administered by Andres Nassar RN; used for procedure; 11:34:08 0.9% NaCl 100 ml/hr I.V. was administered by Andres Nassar RN; Per physician; 11:34:18 Refer to Anesthesia Notes for Sedation Medications was administered by Andres Nassar RN; Per physician; 11:35:20 Inflate balloon Inflation number: 1 A POWERFLEX PRO 7.0 x 20 x 135 cm balloon ([id number]) was prepped and advanced across the Ostial Common Iliac, Right, then inflated to 11 MADISYN for 0:26 (min:sec). 11:37:09 Inflation number: 2 The POWERFLEX PRO 7.0 x 20 x 135 cm balloon ([id number]) was reinflated across the Ostial Common Iliac, Right, to 11 MADISYN for 0:14 (min:sec). 11:37:32 Balloon removed over the wire. 11:40:20 SHEATH 6FR Brite Tip 35cm ([id number]) opened to sterile field. 11:44:06 everflex 8 x 80 was deployed across Ostial Common Iliac, Right . 11:44:18 Stent catheter was removed intact over wire. 11:44:24 Balloon re-inserted over wire. 11:44:39 Inflation number: 3 The POWERFLEX PRO 7.0 x 20 x 135 cm balloon ([id number]) was reinflated across the Ostial Common Iliac, Right, to 13 AMDISYN for 0:00 (min:sec). 11:44:43 Inflation number: 4 The POWERFLEX PRO 7.0 x 20 x 135 cm balloon ([id number]) was reinflated across the Ostial Common Iliac, Right, to 15 MADISYN for 0:00 (min:sec). 11:45:56 Balloon removed over the wire. 11:46:11 Sheath upsized to a 6 Fr Short. 11:46:11 Sheath removed intact; hemostasis achieved with Exoseal to the Right Femoral artery. 11:46:35 SHEATH Prelude 6Fr 0.035 (KCA-8X-06-035) opened to sterile field. 11:46:50 EXOSEAL 6Fr (EX600) opened to sterile field. 11:48:02 Procedure ended.(Physican Out) 11:48:23 Fluoroscopy time 07.50 minutes. 11:48:28 Flurop Dose total: 534 11:48:28 Fluoroscopy dose: 534 mGy 11:48:33 Contrast amount:Isovue 300 97ml. 11:48:35 Sharps counted by scrub and verified by R.N. 11:48:38 Insertion/operative site no bleeding no hematoma. 11:48:42 Post right femoral artery:stable 11:48:44 Post Procedure Pulses reassessed and unchanged 11:48:48 Post-procedure physical assessment completed. ASA score P 2 - A patient with mild systemic disease as per Devon Calderón MD. 11:48:54 Post procedure rhythm: unchanged. 11:48:59 Estimated blood loss: 10 ml 11:49:13 Post procedure instruction explained to patient.Patient verbalizes understanding. 11:50:09 Procedure type changed to Cath procedure, Peripheral Cath Diagnostic Procedure, Vendor Representatives Peripheral Procedures, Dxmpl-Ezwcryw-Zmu-Off, UI SOFTWARE ENGINEER/STENT Peripheral 11:50:11 Procedure and supply charges have been captured, reviewed, submitted and are correct. 11:50:38 Procedure Complication : No complications 11:50:40 Vital chart was stopped 11:50:42 See physician's report for complete and final results. 11:50:45 Report given to Pre/Post Procedure Room. 11:50:48 Patient transfered to Pre/Post Procedure Room with Stretcher. 11:50:50 Procedure ended. 11:50:50 Full Disclosure recording stopped 11:50:53 End room use (Document Last) Intervention Summary Intervention Notes Time ActionType Lesion and Equipment Action# Pressure Duration Attributes Used 11:35:20 Inflate Ostial POWERFLEX 1 11 00:26 balloon Common PRO 7.0 x Iliac, 20 x 135 Right cm balloon ([id number]) 11:37:09 Reinflate Ostial POWERFLEX 2 11 00:14 balloon Common PRO 7.0 x Iliac, 20 x 135 Right cm balloon ([id number]) 11:44:06 Deploy self Ostial everflex 8 1 expanding Common x 80 stent Iliac, Right 11:44:39 Reinflate Ostial POWERFLEX 3 13 00:00 balloon Common PRO 7.0 x Iliac, 20 x 135 Right cm balloon ([id number]) 11:44:43 Reinflate Ostial POWERFLEX 4 15 00:00 balloon Common PRO 7.0 x Iliac, 20 x 135 Right cm balloon ([id number]) Device Usage Item Name Manufacture Quantity Catalog Number Hospital Part Current Minimal Lot# / Charge Number Stock Stock Serial# Code ACIST Syringe Acist 1 01263 174443 582475 [id number] 20 ([id number]) [employer] Bag Decanter Microtek 1 2001S 338136 49777 213564 5 (2001S) Medical Inc. Medline Cath Cardinal 1 [id number] 769100 76616 426328 5 Pack Health ([id number]) DIAGNOSTIC WIRE [facility] 1 276837 322782 309540 262117 30 .035 260cm J wire (182133) ACIST Hand Acist 1 62132 794698 073012 131412 5 Control (20452) [employer] ACIST Manifold Acist 1 25765 766917 627033 717909 5 (30466) [employer] PERCUTANEOUS Cook Medical 1 [id number] 869765 775312 5 ENTRY 19GA needle SHEATH Prelude Merit 1 SBO-4X-69-035 565486 787913 971439 5 5Fr 0.035 Medical (SZN-7R-36-035) MAGIC TORQUE [place] 2 [id number] 421939 238795 080509 1 180cm 0.035 Scientific wire ([id number]) DIAGNOSTIC Cardinal 1 [id number] 750262 952223 756101 5 Pigtail 5Fr Health catheter ([id number]) SHEATH 6FR Cardinal 2 [id number] 333446 338662 709823 1 Brite Tip 35cm Health ([id number]) POWERFLEX PRO Cardinal 1 [id number] 262185 468555 135566 5 7.0 x 20 x 135 Health cm balloon ([id number]) everflex 8 x 80 Unknown 1 0 0 SHEATH Prelude Merit 1 IPP-3C-64-35 031189 1479815 287209 5 6Fr 0.035 Medical (MLZ-2U-11-035) EXOSEAL 6Fr Cardinal 1 EX600 870988 913419 309191 10 (EX600) Health Signature Audit Wall Stage Time Signature Unsigned Intra-Procedure 05/31/2018 Fabiana Robison 11:54:35 AM RT(R) Signatures Monitor : Fabiana Robison Signature : RT Date : Time : [address] [place] [address]
--- NOTE | ~2018-05-31 | OP ---
PATIENT NAME: COLIN STORM MEDICAL RECORD: [id number] :60 LOCATION:D.CAT ADMISSION DATE: SURGEON: TEAGAN LEWIS MD DATE OF OPERATION: 05/31/2018 PROCEDURES: 1. Stent placement, external iliac, right. 2. CHEESEMAKER, external iliac, right. 3. Aortofemoral runoff. 4. Abdominal aortography. INDICATION: Claudication and peripheral vascular disease. PROCEDURE IN DETAIL: After informed consent was obtained and after a detailed description of risks, benefits as well as alternative therapies, the patient elected to proceed with angiogram and angioplasty. The right femoral area was prepped and draped in normal sterile fashion. Right femoral artery was cannulated via modified Seldinger technique with placement of 6-Peruvian sheath. All catheters exchanged through this sheath. FINDINGS: Abdominal aortography was performed. The catheter was pulled down for aortofemoral runoff. Abdominal aortography reveals no significant abdominal aortic disease, no dissection or aneurysm formation. No renal artery stenosis. RIGHT LEG: A. Iliac: The common iliac is replaced with an aortobifemoral graft. This has an 80+ percent stenosis at the distal anastomosis of the graft. B. Femoral system: The common superficial and deep femoral have moderate irregularities, but no flow-limiting stenosis. C. Popliteal and infrapopliteal vessels are widely patent with good 3-vessel runoff to the foot. LEFT LEG: A. Iliac: The iliacs were replaced with an aortofemoral graft. This is widely patent. There is a stent at the distal anastomosis. This is widely patent. B. Femoral system: The common superficial and deep femoral have moderate irregularities, but no flow-limiting stenosis. C. Popliteal and infrapopliteal vessels are widely patent with good 3-vessel runoff to the foot. CHEESEMAKER STENT OF THE DISTAL ANASTOMOSIS OF THE AORTOFEMORAL GRAFT TO THE EXTERNAL ILIAC AREA: The balloon used was a 7 x 20 balloon. This yielded suboptimal result with continued greater than 50% stenosis. There was a second area in the graft that was stenosed as well. This was addressed with a 7.0 balloon. Stenting was undertaken of both areas with an 8 x 80 Fotoliatronic nitinol stent. Post-stent dilatation made up to 13 atmospheres with 7.0 balloon. Result was 0% to 10% residual stenosis. OVERALL IMPRESSION: Successful percutaneous transluminal angioplasty stent of the distal anastomosis of the aortobifemoral graft to the distal external iliac/proximal common femoral segment going from 80% initial stenosis to 10% residual stenosis. TRANSINT:[id number] Voice Confirmation ID: [id number] DOCUMENT ID: [id number] OPERATIVE REPORT [id number] COLIN STORM JEFFREY MD at 0924 CC: [id number] DICTATION DATE: 05/31/18 1153 CONTROLS OPERATOR MOLDED GOODS: 05/31/18 1203 DEP CLI 05/31/18 [address] [place] [address]
[~2018-05-31 09:18] MED LIST changes: +CARAFATE1 G/10 ML PO; +PEPCID40 MG PO
[2018-05-31] MEDS ORDERED: BAYER CHEWABLE81 MG PO (09:33)
[2018-05-31 09:34] VITALS: BP 172/86; Ht 175.3 cm; Wt 86.4 kg
[2018-05-31 09:53] LABS: BASOPHILS 0.3 % (0-2); EOSINOPHILS 0.9 % (0-7); HEMATOCRIT 42.9 % (42.0-54.0); HEMOGLOBIN 13.9 g/dL (13.5-17.5); MCH 26.7 pg (26.0-34.0); MCHC 32.4 g/dL (31.0-37.0); MCV 82.5 fL (80.0-100.0); MEAN PLATELET VOLUME 10.2 fL (7.4-10.4); MONOCYTES 8.3 % (2-11); NEUTROPHILS 56.5 % (40-80); PLATELET COUNT 192 10x3/uL (130-400); RDW 15.2 % (11.5-14.5); WBC 6.8 10x3/uL (4.8-10.8)
[2018-05-31 10:10] LABS: CALC OSMOLALITY 280 mosm/kg (275-300); CALCIUM 9.1 mg/dL (8.5-10.1); CARBON DIOXIDE 27.8 mmol/L (21.0-32.0); CHLORIDE - SERUM 104 mmol/L (98-107); GLUCOSE 107 mg/dL (74-106); POTASSIUM - SERUM 3.9 mmol/L (3.5-5.1); SODIUM 141 mmol/L (136-145); UREA NITROGEN 13 mg/dL (7-18); eGFR NON AFRICAN AMERICAN 81 mL/min (90-120)
== END 2018-05-31 16:00 | disposition home or self-care (01) ==
LOC: D.CATH 09:18
PROVIDERS: Internal Medicine Interventional Cardiology
DX: I70.211 Atherosclerosis of native arteries of extremities with intermittent claudication, right leg (principal)

== ENCOUNTER → 2018-09-04 07:02 | Outpatient (CLI) | payer OTHER ==
[~2018-09-04] VITALS: Ht 175.3 cm; Wt 84.1 kg
--- NOTE | ~2018-09-04 | HEMODYNAMI ---
PATIENT:COLIN STORM MEDICAL RECORD: [id number] : 60 LOCATION:D.CAT ADMISSION DATE: 09/04/18 Generatedon:09/04/201811:45 Patient name: COLIN STORM Patient #: [id number] SSN: : 1960 Date of study: 09/04/2018 Page: Of Hemodynamic Procedure Report Patient Data Patient Demographics Procedure consent was obtained First Name: COLIN Gender: Male Last Name: EMETERIO : 1960 [facility] Initial: NICOL Age: 58 year(s) Patient #: [id number] Race: Additional ID: [id number] Contact details Address: [address] [place] [address] State: [place] City: [place] Zip code: [address] Past Medical History History of disease Date Diagnosis Comments CAD PVD Chronic lung disease->COPD Hypertension Allergies Allergen Reaction Date Comments Reported Other allergy 09/04/2018 Admission Admission Data Admission Date: 09/04/2018 Admission Time: 7:02 Weight (lbs.): 185.19 Weight (kg.): 84 Lab Results Lab Result Date: 09/04/2018 Lab Result Time: 0:00 Biochemistry Name Units Result Min Max BUN mg/dl 13 --(--*-)-- 7 18 Creatinine mg/dl 1.1 --(--*-)-- 0.6 1.3 CBC Name Units Result Min Max Hemoglobin g/dl 15.4 --(-*--)-- 13.5 17.5 Procedure Procedure Types Cath Procedure Diagnostic Procedure LHC LHC w/Coronaries w/Grafts Peripheral Cath Diagnostic Procedure Control Engineer Peripheral Procedures Gmaet-Mrsokjk-Zar-Off Procedure Description Procedure Date Procedure Date: 09/04/2018 Procedure Start Time: 11:16 Procedure End Time: 11:40 Procedure Staff Name Function Devon Calderón MD Performing Physician Gianna Pickard RN Nurse Tl Pires RT Scrub Rainer Brandon MD Additional personnel Cody Cintron RT Monitor Procedure Data Cath Procedure Fluoroscopy Diagnostic fluoroscopy Total fluoroscopy Time: 5.7 time: 5.7 min min Diagnostic fluoroscopy Total fluoroscopy dose: dose: 328.71 mGy 328.71 mGy Contrast Material Contrast Material Type Amount (ml) Isovue 300 167 Entry Location Entry Primary Successful Side Size Upsize Upsize Entry Closure Succes sful Closure Location (Fr) 1 (Fr) 2 (Fr) Remarks Device Remarks Femoral Right 5 Fr Exoseal artery Estimated blood loss: 5 ml Diagnostic catheters Device Type Used For End Catheter Placement MULTIPACK Pigtail 5 Fr Procedure catheter MULTIPACK JL 4.0 5Fr Procedure catheter MULTIPACK 3DRC 5Fr Procedure catheter MULTIPACK Pigtail 5 Fr Procedure catheter Procedure Complications No complications Procedure Medications Medication Administration Route Dosage Oxygen etCO2 Nasal cannula 2 l/min Refer to Anesthesia Notes for Sedation Medications Lidocaine 2% added to field 20 Hemodynamics Rest HGB: 15.4 (g/dl) Heart Rate: 65 (bpm) Pressure Samples Time Site Value (mmHg) Purpose Heart Use Rate(bpm) 11:25 LV 115/38,66 Snapshot 82 Snapshots Pre Cath Intra NCS Post Cath Vital Signs Time Heart Resp SPO2 etCO2 NIBP (mmHg) Rhythm Pain Sedation Rate (ipm) (%) (mmHg) Status Level (bpm) 11:06:08 78 18 99 0 165/96(143) NSR 0 (11) 10(A) , No pain 11:10:36 65 15 100 0 162/81(137) NSR 0 (11) 10(A) , No pain 11:15:03 79 12 96 0 116/68(86) NSR 0 (11) 10(A) , No pain 11:19:20 85 13 98 0 135/74(103) NSR 0 (11) 9(A) , No pain 11:23:49 86 10 100 0 135/67(98) NSR 0 (11) 9(A) , No pain 11:28:07 83 11 99 0 128/64(94) NSR 0 (11) 9(A) , No pain 11:32:25 87 11 97 0 115/64(78) NSR 0 (11) 9(A) , No pain 11:36:41 86 10 98 0 113/64(82) NSR 0 (11) 9(A) , No pain 11:40:49 85 12 99 0 126/71(88) NSR 0 (11) 10(A) , No pain Medications Time Medication Route Dose Verified Delivered Reason Notes Effectiv eness by by 11:04:23 Oxygen etCO2 2 Devon Katz used for Nasal l/min Stephane Pickard RN procedure cannula 11:04:29 Refer to Devon Katz Anesthesia Stephane Pickard RN Notes for Sedation Medications 11:05:04 Lidocaine added 20ml Devon Osorio for local 2% to vial Stephane Calderón MD anesthetic field Procedure Log Time Note 10:40:51 Gianna Pickard RN sent for patient. Start room use. 10:46:52 Time tracking: Regular hours (M-F 7:00 - 5:00) 10:46:55 Plan of Care:Hemodynamics will remain stable., Cardiac rhythm will remain stable., Comfort level will be maintained., Respiratory function will remain adequate., Patient/ family verbilizes understanding of procedure., Procedure tolerated without complication., Recovers from procedure without complications.. 10:47:21 Patient Weight : 185.19 lbs 10:49:13 Lab Result : BUN 13 mg/dl 10:49:13 Lab Result : Hemoglobin 15.4 g/dl 10:49:13 Lab Result : Creatinine 1.1 mg/dl 10:56:17 Patient received from Pre/Post Procedure Room to [facility] 3 Alert and oriented. Tansferred to table in Supine position. 10:56:18 Warm blankets applied, and nirmala hugger turned on for patient comfort. 10:56:18 Correct patient and procedure confirmed by team. 10:56:19 Signed procedure consent form obtained from patient. 10:56:20 ECG and BP/O2 sat monitors applied to patient. 10:56:21 Pre-procedure instructions explained to patient. 10:56:21 Pre-op teaching completed and patient verbalized understanding. 10:56:28 H&P Date Dictated: 08/29/2018 Within 30 days and on chart., H&P Addendum completed by physician on day of procedure. (MUST COMPLETE FOR ALL OUTPATIENTS). 10:56:30 Family in waiting room. 10:56:33 Patient NPO since Midnight. 11:02:25 Rainer Brandon MD present and monitoring patient for TIVA. 11:04:23 Oxygen 2 l/min etCO2 Nasal cannula was administered by Gianna Pickard RN; used for procedure; 11:04:29 Refer to Anesthesia Notes for Sedation Medications was administered by Gianna Pickard RN; ; 11:04:45 Vital chart was started 11:05:04 Lidocaine 2% 20ml vial added to field was administered by Devon Calderón MD; for local anesthetic; 11:10:47 Baseline sample Acquired. 11:10:50 Rhythm: sinus rhythm 11:10:52 Full Disclosure recording started 11:10:56 Patient allergic to Other allergy 11:10:58 Is the patient allergic to Iodine/contrast media? No. 11:10:59 Is patient on blood thinner?Yes 11:11:01 ACC The patient was administered the following blood thiners within the last 24 hours: ACCEffient 11:11:03 Patient diabetic? No. 11:11:06 Previous problem with sedation/anesthesia? No ? 11:11:08 Snore? Yes 11:11:08 Sleep apnea? Yes 11:11:10 Deviated septum? No 11:11:10 Opens mouth fully? Yes 11:11:11 Sticks out tongue? Yes 11:11:13 Airway obstruction? No ? 11:11:15 Dentures? Yes OUT 11:11:17 Pre procedure: right dorsailis pedis pulse 2+ Normal; easily identifiable; not easily obliterated 11:11:19 Patient pain scale 0/10 ?. 11:11:39 IV patent on arrival in left forearm with 0.9% NaCl at [facility]. 11:12:00 Lab results completed and on chart. 11:12:03 Bilateral groins area was prepped with chlora-prep and draped in sterile fashion 11:12:03 Alarms reviewed by R. N. 11:12:04 Sharps counted by scrub and verified by R.N. 11:12:06 Use device set Femoral Dx 11:12:06 ACIST Syringe (86671) opened to sterile field. 11:12:07 Bag Decanter (2002S) opened to sterile field. 11:12:08 ACIST Hand Control (89822) opened to sterile field. 11:12:08 ACIST Manifold (01223) opened to sterile field. 11:12:09 Tegaderm 4 x 4 (1626W) opened to sterile field. 11:12:10 SHEATH 5FR Beaumont (HVD933) opened to sterile field. 11:12:11 DIAGNOSTIC Multipack 5Fr catheter set (WV6961) opened to sterile field. 11:12:12 Medline Cath Pack ([id number]) opened to sterile field. 11:12:13 DIAGNOSTIC WIRE .035 260cm J wire (678386) opened to sterile field. 11::29 Physician arrived 11::30 --------ALL STOP TIME OUT------ 11::30 Final Timeout: patient, procedure, and site verified with staff and physician. All members of the team are in agreement. 11::31 Bilateral groins site verified by team. 11:12:51 Physical assessment completed. ASA score P 4 - A patient with severe systemic disease that is a constant threat to life as per Devon Calderón MD. 11:12:55 Sedation plan: IV Moderate Sedation Medication:Versed, Fentanyl 11:16:23 Procedure started. 11:16:25 Local anesthetic to left femerol artery with Lidocaine 2% by Devon Calderón MD.INITIAL ACCESS ONLY 11:21:46 Local anesthetic to right femoral artery with Lidocaine 2% by Devon Calderón MD.ADDITIONAL ACCESS 11:22:09 Zero performed for pressure channel P1 11:23:03 A 5 Fr sheath was inserted into the Right Femoral artery 11:24:52 A MULTIPACK Pigtail 5 Fr catheter was advanced over the wire and used for Procedure. 11:25:19 Procedure type changed to Cath procedure, Diagnostic procedure, LHC, LHC w/Coronaries w/Grafts, Peripheral Cath Diagnostic Procedure, Control Engineer Peripheral Procedures, Mrlhx-Buyzntj-Pdp-Off 11:25:48 LV gram done using SUN 11:25:50 Injector settings: Ml/sec: 10, Volume: 20, 11:25:51 LV hemodynamics recorded. 11:25:55 EF : 40 % 11:26:20 A MULTIPACK JL 4.0 5Fr catheter was advanced over the wire and used for Procedure. 11:27:01 LCA angiography performed. 11:28:29 Catheter exchanged over wire. 11:28:39 A MULTIPACK 3DRC 5Fr catheter was advanced over the wire and used for Procedure. 11:29:43 SHAH to LAD angiography performed. 11:30:26 RCA angiography performed. 11:30:28 Catheter exchanged over wire. 11:30:31 GUIDE 5FR AR2.0 catheter ([id number]) opened to sterile field. 11:31:37 SVG to RCA angiography performed. 11:32:17 Catheter exchanged over wire. 11:32:25 A MULTIPACK Pigtail 5 Fr catheter was advanced over the wire and used for Procedure. 11:36:10 Catheter removed. 11:36:13 EXOSEAL 5Fr (EX500) opened to sterile field. 11:36:23 Sheath removed intact; hemostasis achieved with Exoseal to the Right Femoral artery. 11:36:25 Procedure ended.(Physican Out) 11:36:36 Fluoroscopy time 05.70 minutes. 11:36:46 Flurop Dose total: 328.71 11:36:46 Fluoroscopy dose: 328.71 mGy 11:36:49 Contrast amount:Isovue 300 167ml. 11:36:50 Sharps counted by scrub and verified by R.N. 11:36:53 Insertion/operative site no bleeding no hematoma. 11:36:57 Post-op/insertion site Right Femoral artery dressed using a 4 x 4 and Tegaderm. 11:37:01 Post-op/insertion site Left Femoral artery dressed using a Bandaid. 11:37:04 Post right femoral artery:stable, soft, clean and dry 11:37:08 Post left femerol artery:stable, soft, clean and dry 11:37:14 Post Procedure Pulses reassessed and unchanged 11:37:18 Post-procedure physical assessment completed. ASA score P 4 - A patient with severe systemic disease that is a constant threat to life as per Devon Calderón MD. 11:37:20 Post procedure rhythm: unchanged. 11:37:22 Estimated blood loss: 5 ml 11:39:19 Post procedure instruction explained to patient.Patient verbalizes understanding. 11:39:20 Patient needs reinforcement of post procedure teaching. 11:39:55 Procedure Complication : No complications 11:39:57 Vital chart was stopped 11:39:57 See physician's report for complete and final results. 11:39:58 Report given to Pre/Post Procedure Room. 11:40:01 Patient transfered to Pre/Post Procedure Room with Stretcher. 11:40:03 Procedure ended. 11:40:03 Full Disclosure recording stopped 11:40:08 End room use (Document Last) Device Usage Item Name Manufacture Quantity Catalog Hospital Part Current Minimal L ot# / Number Charge Number Stock Stock Serial# Code ACIST Acist 1 21500 744380 023709 622688 20 Syringe Medical (76395) Systems Inc Bag Microtek 1 2001S 562287 89662 646542 5 Decanter Medical Inc. () ACIST Hand Acist 1 08450 689787 315005 216744 5 Control Medical (03951) Systems Inc ACIST Acist 1 80175 614525 669156 936502 5 Manifold Medical (99647) Systems Inc Tegaderm 4 3M 1 1626W 565927 097874 120698 5 x 4 (1626W) SHEATH 5FR Terumo 1 ZDQ031 174053 446790 053525 5 Beaumont (PWM254) DIAGNOSTIC Cardinal 1 AJ3654 654700 66766 858486 30 Multipack Health 5Fr catheter set (QN6204) Medline Medline 1 [id number] 651602 45528 770851 5 Cath Pack ([id number]) DIAGNOSTIC [facility] 1 608859 376529 457904 370293 30 WIRE .035 260cm J wire (078622) MULTIPACK Cardinal 1 606426 5 Pigtail 5 Health Fr catheter MULTIPACK Cardinal 1 132545 5 JL 4.0 5Fr Health catheter MULTIPACK Cardinal 1 874746 5 3DRC 5Fr Health catheter GUIDE 5FR Medtronic 1 [id number] 516145 555152 685258 1 AR2.0 catheter ([id number]) EXOSEAL 5Fr Cardinal 1 EX500 099100 531727 353876 10 (EX500) Health Signature Audit [place] Stage Time Signature Unsigned Intra-Procedure 09/04/2018 Cody Cintron 11:44:49 AM RT(R) Signatures Monitor : Cody Cintron RT Signature : Date : Time : [id number] [place] [address]
[~2018-09-04 07:02] MED LIST changes: +BAYER ASPIRIN325 MG PO; +BAYER CHEWABLE81 MG PO
[2018-09-04 07:32] VITALS: BP 175/81; Ht 175.3 cm; Wt 84.1 kg
[2018-09-04 07:42] LABS: BASOPHILS 0.4 % (0-2); EOSINOPHILS 1.3 % (0-7); HEMATOCRIT 46.5 % (42.0-54.0); HEMOGLOBIN 15.4 g/dL (13.5-17.5); IMMATURE GRANULOCYTES 0.4 % (0-5); LYMPHOCYTES 36.8 % (15-50); MCH 27.3 pg (26.0-34.0); MCHC 33.1 g/dL (31.0-37.0); MCV 82.4 fL (80.0-100.0); MEAN PLATELET VOLUME 10.4 fL (7.4-10.4); MONOCYTES 8.8 % (2-11); NEUTROPHILS 52.3 % (40-80); PLATELET COUNT 186 10x3/uL (130-400); RBC 5.64 10x6/uL (4.20-6.10); RDW 14.9 % (11.5-14.5); WBC 7.9 10x3/uL (4.8-10.8)
[2018-09-04 07:54] LABS: CALCIUM 9.2 mg/dL (8.5-10.1); CARBON DIOXIDE 27.2 mmol/L (21.0-32.0); CREATININE - SERUM 1.1 mg/dL (0.6-1.3); POTASSIUM - SERUM 4.2 mmol/L (3.5-5.1)
--- NOTE | 2018-09-04 12:11 | NUR ---
PT. SLEEPING. AROUSES TO VOICE. FAMILY AT BS. VSS. BP 149/77. HR 62. DENIES CP. JOSSELYN. GROIN C/D/I. NO BLEEDING. NO HEMATOMA. 2+ PULSES.
--- NOTE | 2018-09-04 13:07 | NUR ---
RESTING QUIETLY. VSS. BP 137/68. NSR 61. DENIES PAIN. JOSSELYN. GROIN C/D/I. NO BLEEDING. NO HEMATOMA. FAMILY AT BS
--- NOTE | 2018-09-04 13:22 | NUR ---
INCRESED HOB. VSS. JOSSELYN. GROINS C/D/I. DENIES PAIN. REQUESTING COFFEE. NO N/V. FAMILY AT BS
--- NOTE | 2018-09-04 13:41 | NUR ---
DISCHARGE INSTRUCTIONS REVIEWED WITH PT. LEFT PIV REMOVED. QUESTIONS ANSWERED .
--- NOTE | 2018-09-04 13:46 | NUR ---
PT. DISCHARGED IN . HOME WITH SPOUSE. URINATED 200 CC CLEAR YELLOW
--- NOTE | 2018-09-05 13:29 | OP ---
PATIENT NAME: COLIN STORM MEDICAL RECORD: [id number] :60 LOCATION:D.CAT ADMISSION DATE: SURGEON: TEAGAN LEWIS MD DATE OF OPERATION: 09/04/2018 DATE OF SERVICE: 09/04/2018 PROCEDURES: 1. Left heart catheterization. 2. Selective coronary angiography. 3. Vein graft angiography. 4. SHAH angiography. 5. Aortofemoral runoff. 6. Abdominal aortography. INDICATION: Angina and coronary artery disease, claudication and peripheral vascular disease. PROCEDURE IN DETAIL: After informed consent was obtained and after detailed description of risks, benefits as well as alternative therapies, the patient elected to proceed with angiogram and heart catheterization. The right femoral area was prepped and draped in normal sterile fashion. Right femoral artery was cannulated via modified Seldinger technique with placement of 5-Tajik sheath. All catheters exchanged through this sheath. FINDINGS: Abdominal aortography was performed. The catheter was pulled down for aortofemoral runoff. Abdominal aortography reveals no significant abdominal aortic disease, no dissection or annulus formation. RIGHT LEG: A. Iliac: The common internal and external iliacs have previously placed stents, these are widely patent with no significant restenosis. No disease elsewise throughout the iliacs. B. Femoral system: The common superficial and deep femoral have moderate irregularities, but no flow-limiting stenosis. C. Popliteal and infrapopliteal vessels are patent, although small and diffusely diseased. There is 3-vessel runoff to the foot. LEFT LEG: A. Iliac: The common internal and external iliacs have previously placed stents, these are widely patent with no significant restenosis. No disease elsewise throughout the iliacs. B. Femoral system: The common superficial and deep femoral have moderate irregularities, but no flow-limiting stenosis. C. Popliteal and infrapopliteal vessels are patent, although small and diffusely diseased. There is 3-vessel runoff to the foot. Left ventriculogram was performed in standard 30-degree SUN view, reveals mild global hypokinesis, ejection fraction of 40%. SELECTIVE CORONARY ANGIOGRAPHY: 1. Left main is with no significant angiographic disease. 2. Left anterior descending has totally occluded. 3. Left circumflex is totally occluded. 4. Right coronary is totally occluded in mid vessel. OPERATIVE REPORT [id number] COLIN STORM 5. SHAH to the LAD is patent. The distal LAD is widely patent. 6. Vein graft to the RCA is patent. Distal RCA is widely patent. 7. The left circumflex does not appear to be grafted. OVERALL IMPRESSION: Wide patency of the left internal mammary artery to the left anterior descending, vein graft to the right coronary artery, really no change in his angiography. Continue medical management of the coronary artery disease, cardiac risk factors. Peripheral vascular disease is stable. Previously placed stents are widely patent with no significant new stenosis. TRANSINT:[id number] Voice Confirmation ID: [id number] DOCUMENT ID: [id number] TEAGAN LEWIS MD at 1329 CC: [id number] DICTATION DATE: 09/04/18 1142 MEDICAL TECHNOLOGIST HEMATOLOGY: 09/04/18 1435 [facility] CLI 09/04/18 [address] [place] [address]
== END | disposition home or self-care (01) ==
LOC: D.CATH 07:02
PROVIDERS: Internal Medicine Interventional Cardiology
DX: I25.119 Atherosclerotic heart disease of native coronary artery with unspecified angina pectoris (principal); I70.213 Atherosclerosis of native arteries of extremities with intermittent claudication, bilateral legs

== ENCOUNTER 2019-02-01 09:17 | Outpatient (CLI) | payer OTHER ==
[~2019-02-01] VITALS: Ht 175.3 cm; Wt 86.4 kg
--- NOTE | ~2019-02-01 | HEMODYNAMI ---
PATIENT:COLIN STORM MEDICAL RECORD: [id number] : 60 LOCATION:D.CAT ADMISSION DATE: 02/01/19 Generatedon:02/01/201912:34 Patient name: COLIN STORM Patient #: [id number] SSN: : 1960 Date of study: 02/01/2019 Page: Of Hemodynamic Procedure Report Patient Data Patient Demographics Procedure consent was obtained First Name: COLIN Gender: Male Last Name: EMETERIO : 1960 Middle Initial: NICOL Age: 58 year(s) Patient #: [id number] Race: Additional ID: [id number] Contact details [address]: [address] [place] [address] State: [place] City: [place] Zip code: [address] Past Medical History History of disease Date Diagnosis Comments CAD PVD Chronic lung disease->COPD Hypertension Allergies Allergen Reaction Date Comments Reported Other allergy 09/04/2018 Admission Admission Data Admission Date: 02/01/2019 Admission Time: 9:17 Lab Results Lab Result Date: 02/01/2019 Lab Result Time: 0:00 Biochemistry Name Units Result Min Max BUN mg/dl 14 --(--*-)-- 7 18 Creatinine mg/dl 0.9 --(-*--)-- 0.6 1.3 CBC Name Units Result Min Max Hemoglobin g/dl 14.1 --(*---)-- 13.5 17.5 Procedure Procedure Types Cath Procedure Diagnostic Procedure LHC LHC w/Coronaries w/Grafts Procedure Description Procedure Date Procedure Date: 02/01/2019 Procedure Start Time: 12:14 Procedure End Time: 12:25 Procedure Staff Name Function Devon Calderón MD Performing Physician Radha Patel RT Monitor Court Patterson RT Scrub Dee Kapadia RN Nurse aRiner Brandon MD Additional personnel Procedure Data Cath Procedure Fluoroscopy Diagnostic fluoroscopy Total fluoroscopy Time: 3.5 time: 3.5 min min Diagnostic fluoroscopy Total fluoroscopy dose: 558 dose: 558 mGy mGy Contrast Material Contrast Material Type Amount (ml) Isovue 300 52 Entry Location Entry Primary Successful Side Size Upsize Upsize Entry Closure Succes sful Closure Location (Fr) 1 (Fr) 2 (Fr) Remarks Device Remarks Femoral Right 5 Fr Exoseal artery Estimated blood loss: 5 ml Diagnostic catheters Device Type Used For End Catheter Placement MULTIPACK Pigtail 5 Fr LV Angiography catheter MULTIPACK JL 4.0 5Fr Left Coronary catheter Angiography MULTIPACK 3DRC 5Fr Right Coronary catheter Angiography DIAGNOSTIC AR2 MOD 5 Fr Multi-vessel catheter ([id number]) Angiography DIAGNOSTIC RCB 5Fr Multi-vessel catheter ([id number]) Angiography Procedure Complications No complications Procedure Medications Medication Administration Route Dosage 0.9% NaCl I.V. 100 ml/hr Oxygen etCO2 Nasal cannula 2 l/min Lidocaine 2% added to field 20 Heparin Flush Bag added to field 2 bags (1000units/500ml NS) Refer to Anesthesia Notes for Sedation Medications Effient P.O. 10 mg Hemodynamics Rest HGB: 14.1 (g/dl) Heart Rate: 72 (bpm) Pressure Samples Time Site Value (mmHg) Purpose Heart Use Rate(bpm) 12:16 LV 132/83,86 Snapshot 97 Snapshots Pre Cath Intra NCS Post Cath Vital Signs Time Heart Resp SPO2 etCO2 NIBP (mmHg) Rhythm Pain Sedation Rate (ipm) (%) (mmHg) Status Level (bpm) 11:57:55 68 22 100 40.6 176/94(155) NSR 0 (11) 10(A) , No pain 12:02:19 73 13 100 30.8 168/99(135) NSR 0 (11) 10(A) , No pain 12:06:47 72 11 100 39.1 167/85(133) NSR 0 (11) 10(A) , No pain 12:11:08 67 14 100 35.3 173/94(131) NSR 0 (11) 5(A) , No pain 12:15:25 91 12 98 30 143/80(105) NSR 0 (11) 5(A) , No pain 12:19:42 89 11 97 12 139/84(113) NSR 0 (11) 5(A) , No pain 12:23:59 90 14 99 21.8 158/78(104) NSR 0 (11) 10(A) , No pain Medications Time Medication Route Dose Verified Delivered Reason Notes E ffectiveness by by 11:59:26 0.9% NaCl I.V. 100 Devon Dee used for ml/hr Stephane Kapadia compounding and finishing supervisor 11:59:33 Oxygen etCO2 2 Devon Macyla used for Nasal l/min Stephane Kapadia procedure cannula RN 11:59:37 Lidocaine 2% added 20ml Devon Osorio for local to vial Stephane Calderón MD anesthetic field 11:59:42 Heparin Flush added 2 Devon Osorio used for Bag to bags Stephane Calderón MD procedure (1000units/500ml field NS) 11:59:45 Refer to Devon Osorio Anesthesia Notes Stephane Calderón MD for Sedation Medications 11:59:59 Effient P.O. 10 mg Devon Daughertya for Stephane Kapadia antiplatelet RN therapy Procedure Log Time Note 11:37:26 Signed procedure consent form obtained from patient. 11:37:27 Diagnostic Cath status Urgent 11:37:29 Time tracking: Regular hours (M-F 7:00 - 5:00) 11:37:33 Plan of Care:Hemodynamics will remain stable., Cardiac rhythm will remain stable., Comfort level will be maintained., Respiratory function will remain adequate., Patient/ family verbilizes understanding of procedure., Procedure tolerated without complication., Recovers from procedure without complications.. 11:43:23 Radha Patel RT(R) sent for patient. Start room use. 11:56:39 Vital chart was started 11:59:26 0.9% NaCl 100 ml/hr I.V. was administered by Dee Kapadia RN; used for procedure; 11:59:33 Oxygen 2 l/min etCO2 Nasal cannula was administered by Dee Kapadia RN; used for procedure; 11:59:37 Lidocaine 2% 20ml vial added to field was administered by Devon Calderón MD; for local anesthetic; 11:59:42 Heparin Flush Bag (1000units/500ml NS) 2 bags added to field was administered by Devon Calderón MD; used for procedure; 11:59:45 Refer to Anesthesia Notes for Sedation Medications was administered by Devon Calderón MD; ; 11:59:59 Effient 10 mg P.O. was administered by Dee Kapadia RN; for antiplatelet therapy; 12:00:10 Patient received from ED to CCL 1 Alert and oriented. Tansferred to table in Supine position. 12:00:11 Warm blankets applied, and nirmala hugger turned on for patient comfort. 12:00:11 Correct patient and procedure confirmed by team. 12:00:12 ECG and BP/O2 sat monitors applied to patient. 12:00:13 Baseline sample Acquired. 12:00:23 Rhythm: sinus rhythm 12:00:25 Full Disclosure recording started 12:00:29 H&P Date Dictated: 02/01/2019 ER History on chart., New H&P dictated by physician.. 12:00:31 Pre-procedure instructions explained to patient. 12:00:31 Pre-op teaching completed and patient verbalized understanding. 12:00:32 Family in waiting room. 12:00:34 Patient NPO since Midnight. 12:00:37 Is the patient allergic to Iodine/contrast media? No. 12:00:38 Was the patient premedicated? No 12:00:39 Is patient on blood thinner?Yes 12:00:43 ACC The patient was administered the following blood thiners within the last 24 hours: ACCEffient 12:00:45 Patient diabetic? No. 12:00:48 Previous problem with sedation/anesthesia? No ? 12:00:50 Snore? Yes 12:00:51 Sleep apnea? Yes 12:00:52 Deviated septum? No 12:00:53 Opens mouth fully? Yes 12:00:54 Sticks out tongue? Yes 12:00:56 Airway obstruction? No ? 12:01:00 Dentures? Yes in tight 12:02:37 Pre procedure: right dorsailis pedis pulse 2+ Normal; easily identifiable; not easily obliterated 12:02:40 Pre procedure: left dorsailis pedis pulse Doppler 12:02:42 Patient pain scale 0/10 ?. 12:03:03 IV patent on arrival in left hand with 0.9% NaCl at [facility]. 12:03:05 Lab results completed and on chart. 12:03:09 Bilateral groins area was prepped with chlora-prep and draped in sterile fashion 12:03:10 Alarms reviewed by R. N. 12:03:11 Sharps counted by scrub and verified by R.N. 12:04:31 Lab Result : Creatinine 0.9 mg/dl 12:04:31 Lab Result : BUN 14 mg/dl 12:04:31 Lab Result : Hemoglobin 14.1 g/dl 12:07:58 Physician paged 12:08:08 Zero performed for pressure channel P1 12:08:19 Zero performed for pressure channel P1 12:08:26 Zero performed for pressure channel P1 12:08:35 Zero performed for pressure channel P1 12:08:47 Physician arrived 12:08:47 --------ALL STOP TIME OUT------ 12:08:48 Final Timeout: patient, procedure, and site verified with staff and physician. All members of the team are in agreement. 12:08:50 Bilateral groins site verified by team. 12:08:57 Maximum allowable Isovue 370 dose 300ml. Physician notified. (300ml for normal creatinines. For patients with creatinine of 1.7 or higher multiply weight(kg) x 5 divided by creatinine.) 12:09:02 Fire Safety Assessment: A--An alcohol-based skin anteseptic being used preoperatively., C--Open oxygen or nitrous oxide is being used., D--An ESU, laser, or fiber-optic light is being used. 12:09:11 Physical assessment completed. ASA score P 2 - A patient with mild systemic disease as per Devon Calderón MD. 12:09:16 Sedation plan: IV Moderate Sedation Medication:Versed, Fentanyl 12:10:59 Use device set Femoral Dx 12:11:00 ACIST Syringe (49937) opened to sterile field. 12:11:00 Bag Decanter (2002S) opened to sterile field. 12:11:01 Medline Cath Pack ([id number]) opened to sterile field. 12:11:01 DIAGNOSTIC WIRE .035 260cm J wire (188350) opened to sterile field. 12:11:03 ACIST Hand Control (89062) opened to sterile field. 12:11:03 ACIST Manifold (67620) opened to sterile field. 12:11:03 DIAGNOSTIC Multipack 5Fr catheter set ([id number]) opened to sterile field. 12:11:04 Tegaderm 4 x 4 (1626W) opened to sterile field. 12:11:05 SHEATH 5FR [place] (OHN465) opened to sterile field. 12:14:00 Procedure started. 12:14:24 Local anesthetic to right femoral artery with Lidocaine 2% by Devon Calderón MD.INITIAL ACCESS ONLY 12:15:07 A 5 Fr sheath was inserted into the Right Femoral artery 12:16:11 A MULTIPACK Pigtail 5 Fr catheter was advanced over the wire and used for LV Angiography. 12:16:38 LV hemodynamics recorded. 12:16:39 LV gram done using SUN 12:16:44 EF : 40 % 12:16:49 Catheter removed. 12:17:53 A MULTIPACK JL 4.0 5Fr catheter was advanced over the wire and used for Left Coronary Angiography. 12:18:31 LCA angiography performed. 12:18:33 Injector settings: Ml/sec: 3, Volume: 6, 12:18:39 A MULTIPACK 3DRC 5Fr catheter was advanced over the wire and used for Right Coronary Angiography. 12:18:56 SHAH angiography performed. 12:19:00 Injector settings: Ml/sec: 3, Volume: 6, 12:19:34 RCA angiography performed. 12:19:39 Injector settings: Ml/sec: 3, Volume: 6, 12:20:30 Catheter removed. 12:20:48 A DIAGNOSTIC AR2 MOD 5 Fr catheter ([id number]) was advanced over the wire and used for Multi-vessel Angiography. 12:21:05 Catheter removed. unable to cannulate vessel. 12:21:19 A DIAGNOSTIC RCB 5Fr catheter ([id number]) was advanced over the wire and used for Multi-vessel Angiography. 12:23:17 SVG to RCA angiography performed. 12:23:26 Catheter removed. 12:23:31 EXOSEAL 5Fr (EX500) opened to sterile field. 12:23:41 Sheath removed intact; hemostasis achieved with Exoseal to the Right Femoral artery. 12:23:43 Procedure ended.(Physican Out) 12:24:03 Fluoroscopy time 03.50 minutes. 12:24:07 Fluoroscopy dose: 558 mGy 12:24:07 Flurop Dose total: 558 12:24:11 Contrast amount:Isovue 300 52ml. 12:24:14 Sharps counted by scrub and verified by R.N. 12:24:14 Insertion/operative site no bleeding no hematoma. 12:24:17 Post-op/insertion site Right Femoral artery dressed using a 4 x 4 and Tegaderm. 12:24:29 Post Procedure Pulses reassessed and unchanged 12:24:32 Post procedure rhythm: unchanged. 12:24:34 Estimated blood loss: 5 ml 12:24:37 Post procedure instruction explained to patient.Patient verbalizes understanding. 12:24:38 Patient needs reinforcement of post procedure teaching. 12:24:46 Procedure type changed to Cath procedure, Diagnostic procedure, LHC, LHC w/Coronaries w/Grafts 12:24:50 Procedure and supply charges have been captured, reviewed, submitted and are correct. 12:24:55 Procedure Complication : No complications 12:24:57 Vital chart was stopped 12:24:58 See physician's report for complete and final results. 12:25:06 Report given to Pre/Post Procedure Room. 12:25:09 Patient transfered to Pre/Post Procedure Room with Stretcher. 12:25:11 Procedure ended. 12:25:11 Full Disclosure recording stopped 12:25:17 End room use (Document Last) Device Usage Item Name Manufacture Quantity Catalog Hospital Part Current Minimal L ot# / Number Charge Number Stock Stock Serial# Code ACIST Acist 1 51891 797161 739665 869030 20 Syringe Medical (06722) Systems Inc Bag Microtek 1 2001S 997382 37941 354756 5 Decanter Medical Inc. () Medline Medline 1 [id number] 641304 70641 885276 5 Cath Pack ([id number]) DIAGNOSTIC [facility] 1 422994 694650 272510 191939 30 WIRE .035 260cm J wire (568113) ACIST Hand Acist 1 68347 749135 425951 425732 5 Control Medical (60267) Systems Inc ACIST Acist 1 29529 238339 055700 140927 5 Manifold Medical (87856) Systems Inc DIAGNOSTIC Cardinal 1 PP5831 859766 20762 846001 30 Multipack Health 5Fr catheter set (FB4135) Tegaderm 4 3M 1 1626W 051948 711186 028981 5 x 4 (1626W) SHEATH 5FR Terumo 1 SHH911 489279 148187 982015 5 [place] (FAW168) MULTIPACK Cardinal 1 230106 5 Pigtail 5 Health Fr catheter MULTIPACK Cardinal 1 179784 5 JL 4.0 5Fr Health catheter MULTIPACK Cardinal 1 199368 5 3DRC 5Fr Health catheter DIAGNOSTIC Cardinal 1 [id number] 818829 963614 199716 20 AR2 MOD 5 Health Fr catheter (182998D) DIAGNOSTIC Cardinal 1 113374L 619373 076943 159762 5 RCB 5Fr Health catheter (586481G) EXOSEAL 5Fr Cardinal 1 EX500 312594 783472 533062 10 (EX500) Health Signature Audit [place] Stage Time Signature Unsigned Intra-Procedure 02/01/2019 Radha Patel 12:34:33 PM RT(R) Signatures Monitor : Radha Patel RT Signature : Date : Time : [address] [place] [address]
[2019-02-01 09:23] VITALS: Ht 175.3 cm; Wt 86.4 kg
[2019-02-01] MEDS ORDERED: NORVASC10 MG PO (09:25)
[2019-02-01 10:12] LABS: ALBUMIN 3.6 g/dL (3.4-5.0); ALKALINE PHOSPHATASE 99 U/L (46-116); ALT (SGPT) 24 U/L (10-68); CALCIUM 9.1 mg/dL (8.5-10.1); CARBON DIOXIDE 29.7 mmol/L (21.0-32.0); CKMB 1.2 U/L (0.0-3.6); CREATINE KINASE 58 UL (21-232); CREATININE - SERUM 0.9 mg/dL (0.6-1.3); GLUCOSE 131 mg/dL (74-106); PROTEIN - SERUM 7.7 g/dL (6.4-8.2); UREA NITROGEN 14 mg/dL (7-18); eGFR NON AFRICAN AMERICAN > 90 mL/min (90-120)
[2019-02-01 10:13] LABS: BASOPHILS 0.3 % (0-2); EOSINOPHILS 0.8 % (0-7); HEMATOCRIT 43.6 % (42.0-54.0); HEMOGLOBIN 14.1 g/dL (13.5-17.5); IMMATURE GRANULOCYTES 0.1 % (0-5); LYMPHOCYTES 30.3 % (15-50); MCH 25.2 pg (26.0-34.0); MCHC 32.3 g/dL (31.0-37.0); MCV 77.9 fL (80.0-100.0); MONOCYTES 8.9 % (2-11); NEUTROPHILS 59.6 % (40-80); PLATELET COUNT 194 10x3/uL (130-400); RDW 14.8 % (11.5-14.5); WBC 7.5 10x3/uL (4.8-10.8)
[2019-02-01 10:16] LABS: TROPONIN-I < 0.017 ng/mL (0.000-0.060)
[2019-02-01 10:24] LABS: CALC OSMOLALITY 281 mosm/kg (275-300); CHLORIDE - SERUM 102 mmol/L (98-107); POTASSIUM - SERUM 4.1 mmol/L (3.5-5.1); SODIUM 140 mmol/L (136-145)
[2019-02-01 11:52] VITALS: BP 163/90
--- NOTE | 2019-02-01 12:26 | CN ---
PATIENT NAME:COLIN STORM MEDICAL RECORD: [id number] : 60 LOCATION:D.CAT ADMIT DATE: ACCOUNT: [id number] CONSULTING PHYSICIAN: TEAGAN LEWIS MD REFERRING PHYSICIAN: ELIESER CORREA MD DATE OF CONSULTATION: 02/01/2019 DIAGNOSES: 1. Unstable angina. 2. Abnormal ECG. 3. Coronary artery disease. 4. Peripheral vascular disease. 5. Hypertension. 6. Hyperlipidemia. HISTORY OF PRESENT ILLNESS: Mr. Storm has been having increasing episodes of angina. We have been seeing him in clinic. He is currently on maximal medical therapy with nitrates, beta-cristofer, and calcium channel cristofer. He has continued to have episodes of anginal symptomatology that is worsening. PHYSICAL EXAMINATION: GENERAL APPEARANCE: Well-nourished, well-developed, appears stated age. Level of distress, comfortable. PSYCHIATRIC: Mental status, alert, normal affect. Orientation, oriented to time, place and person. EYES: Lids and conjunctiva, noninjected. No discharge, no pallor. ENT: Lips, teeth, gums, normal dentition. Oropharynx, no cyanosis, no pallor. NECK: Carotid arteries, bilateral normal upstroke, no bruits, no thrills. JUGULAR VEINS: No jugular venous pressure or distention. CERVICAL LYMPH NODES: Nontender, nonenlarged. THYROID: Not enlarged. Nontender. No nodules. LUNGS: Respiratory effort, unlabored. CHEST: Normal curvature. No thoracic deformity. No chest wall tenderness. Percussion, resonant. Auscultation, clear. No wheezes, no rales, no rhonchi. CARDIOVASCULAR: Precordial exam, nondisplaced. No heaves or pericardial thrills. Rate and rhythm, regular. Heart sounds, normal S1, normal S2. No S3, no gallop, no rub. Systolic murmur, not heard. Diastolic murmur, not heard. EXTREMITIES: No cyanosis, no edema. Peripheral pulses, full and equal in all extremities, except as noted. No bruits appreciated. ABDOMEN: Soft, nondistended. Normal aorta. No bruit. Nontender. No masses. Liver, nontender, no hepatomegaly. Spleen, nontender, no splenomegaly. MUSCULOSKELETAL: No joint tenderness. No joint swelling. No erythema. NEUROLOGICAL: Normal gait, normal strength, normal tone. SKIN: Warm and dry. OVERALL IMPRESSION: Worsening anginal symptomatology despite medical management. At this time, we will proceed with coronary angiography. Further care depends upon the findings of the angiography. TRANSINT:[id number] Voice Confirmation ID: [id number] DOCUMENT ID: [id number] CONSULT REPORT [id number] COLIN STORM JEFFREY MD at 1226 CC: [id number] DICTATION DATE: 02/01/19 1058 INDUSTRIAL DESIGN ENGINEER: 02/01/19 1139 [facility] [address] [place] [address]
--- NOTE | 2019-02-01 12:46 | NUR ---
RECIEVED TO ROOM VIA STRETCHER FROM SHORE HAND DREDGE OR BARGE WITH 5 FR EXOSEAL TO R/GROIN CDI NO BLEEDING OR HEMATOMA NOTED. PATIENT CONNECTED TO MONITOR FOR OBSERVATION WITH HR 72 BP 132/81. INSTRUCTED PATIENT TO KEEP HEAD FLAT ON PILLOW WITH RLE STRAIGHT
[2019-02-01] MEDS ORDERED: ISOSORBIDE MONO60 M1 PO (12:55)
--- NOTE | 2019-02-01 13:00 | NUR ---
RESTING QUIETLY WITH 5 FR EXOSEAL R/GROIN CDI NO BLEEDING. R/FOOT IS WARM TO TOUCH. HR 78 BP 141/76
--- NOTE | 2019-02-01 13:17 | NUR ---
PATIENT CONTINUES TO REST WITH EYES CLOSED. 5 FR EXOSEAL R/GROIN IS CDI. FAMILY IS PRESENT AT BEDSIDE
--- NOTE | 2019-02-01 13:41 | NUR ---
5 FR EXOSEAL R/GROIN CDI NO BLEEDING NOTED. VSS AND PATIENT CONTINUES TO REST
--- NOTE | 2019-02-01 14:02 | NUR ---
REPOSITIONED TO SITTING WITH HOB UP 30 FOR COMFORT. 5 FR EXOSEAL R/GROIN REMAINS CDI. SANDWICH AND SODA TO BEDSIDE
--- NOTE | 2019-02-01 14:20 | NUR ---
PIV REMOVED WITH DRESSING APPLIED. 5 FR EXOSEAL TO R/GROIN REMAINS CDI PATIENT UP TO GET DRESSED FOR DISCHARGE HOME
--- NOTE | 2019-02-01 14:32 | NUR ---
VERBAL AND WRITTEN DISCHARGE GONE OVER WITH PATIENT AND . 5 FR EXOSEL REMAINS DRY. PATIENT DENIED CHEST PAIN LEFT VIA WC TO PARKING FOR TRANSPORT HOME
--- NOTE | 2019-02-02 09:40 | OP ---
PATIENT NAME: COLIN STORM MEDICAL RECORD: [id number] :60 LOCATION:D.CAT ADMISSION DATE: SURGEON: TEAGAN LEWIS MD DATE OF OPERATION: 02/01/2019 PROCEDURES: 1. Left heart catheterization. 2. Selective coronary angiography. 3. Left ventriculogram. 4. Vein graft angiography. 5. SHAH angiography. INDICATION: Unstable angina, coronary artery disease, hypertension, hyperlipidemia. PROCEDURE IN DETAIL: After informed consent was obtained and after a detailed description of the risks, benefits as well as alternative therapies, the patient elected to proceed with angiogram and heart catheterization. The right femoral area was prepped and draped in normal sterile fashion. Right femoral artery was cannulated via modified Seldinger technique with placement of 5-Czech sheath. All catheters exchanged through this sheath. FINDINGS: The left ventriculogram was performed in standard 30-degree SUN view, reveals global hypokinesis, ejection fraction of 40%. SELECTIVE CORONARY ANGIOGRAPHY: 1. Left main has no significant angiographic disease. 2. Left anterior descending has totally occluded proximal. 3. Left circumflex has moderate irregularities, but no flow-limiting stenosis. 4. SHAH to the LAD is widely patent. Distal LAD is widely patent. 5. The right coronary is totally occluded in the mid vessel. 6. Vein graft to the RCA is patent. Previously placed stent in the vein graft is patent. The remainder of the vein graft and distal RCA are widely patent. OVERALL IMPRESSION: Wide patency of the previously placed stents, wide patency of the vein graft as well as SHAH. At this time, continue medical management of the coronary artery disease and cardiac risk factors. We will increase his Imdur to 60 mg b.i.d. from 30 mg every day in hopes of anginal relief and could add Ranexa. TRANSINT:[id number] Voice Confirmation ID: [id number] DOCUMENT ID: [id number] TEAGAN LEWIS MD at 0940 CC: [id number] DICTATION DATE: 02/01/19 1229 WEIGH MACHINE OPERATOR: 02/01/19 1254 DEP CLI 02/01/19 [place] [address]
== END 2019-02-01 14:34 | disposition home or self-care (01) ==
LOC: D.CATH 09:17 → D.ER 09:17 → EDSTATUS 10:36 → D.CATH 14:34
PROVIDERS: ATTEND Family Medicine
DX: I25.119 Atherosclerotic heart disease of native coronary artery with unspecified angina pectoris (principal); R94.30 Abnormal result of cardiovascular function study, unspecified; I70.203 Unspecified atherosclerosis of native arteries of extremities, bilateral legs; I10 Essential (primary) hypertension; E78.5 Hyperlipidemia, unspecified

== ENCOUNTER 2019-04-20 10:57 | Outpatient (CLI) | payer OTHER ==
[~2019-04-20] VITALS: Ht 175.3 cm; Wt 86.4 kg
--- NOTE | ~2019-04-20 | HEMODYNAMI ---
PATIENT:COLIN STORM MEDICAL RECORD: [id number] : 60 LOCATION:[facility] ADMISSION DATE: 04/20/19 Generatedon:04/20/201913:43 Patient name: COLIN STORM Patient #: [id number] SSN: : 1960 Date of study: 04/20/2019 Page: Of Hemodynamic Procedure Report Patient Data Patient Demographics Procedure consent was obtained First Name: COLIN Gender: Male Last Name: EMETERIO : 1960 Middle Initial: NICOL Age: 58 year(s) Patient #: [id number] Race: Additional ID: [id number] Contact details Address: [address] [place] [address] State: [place] City: [place] Zip code: [address] Past Medical History History of disease Date Diagnosis Comments CAD PVD Chronic lung disease->COPD Hypertension Allergies Allergen Reaction Date Comments Reported Other allergy 09/04/2018 Admission Admission Data Admission Date: 04/20/2019 Admission Time: 10:57 Lab Results Lab Result Date: 04/20/2019 Lab Result Time: 0:00 Biochemistry Name Units Result Min Max BUN mg/dl 14 --(--*-)-- 7 18 Creatinine mg/dl 0.9 --(-*--)-- 0.6 1.3 eGFR ml/min 90 --(*---)-- 90 120 NONAFRICAN CBC Name Units Result Min Max Hematocrit % 32.6 *-(----)-- 42 54 Hemoglobin g/dl 10.3 *-(----)-- 13.5 17.5 Procedure Procedure Types Cath Procedure Peripheral Cath Diagnostic Procedure Echo Tech Peripheral Procedures Atxzd-Gvlqzdv-Twx-Off Peripheral vascular Intervention Atherectomy Atherectomy Fem/Pop w/Plasty Procedure Description Procedure Date Procedure Date: 04/20/2019 Procedure Start Time: 12:57 Procedure End Time: 13:38 Procedure Staff Name Function Devon Calderón MD Performing Physician Court Patterson RT Monitor Cody Cintron RT Scrub Gianna Pickard RN Nurse Nicol Rouse CRNA Additional personnel Procedure Data Cath Procedure Fluoroscopy Diagnostic fluoroscopy Total fluoroscopy Time: 8.3 time: 8.3 min min Diagnostic fluoroscopy Total fluoroscopy dose: 374 dose: 374 mGy mGy Contrast Material Contrast Material Type Amount (ml) Isovue 300 110 Entry Location Entry Primary Successful Side Size Upsize Upsize Entry Closure Succes sful Closure Location (Fr) 1 (Fr) 2 (Fr) Remarks Device Remarks Brachial Right 6 Fr 6 Fr Exoseal artery Short Long Estimated blood loss: 10 ml Diagnostic catheters Device Type Used For End Catheter Placement DIAGNOSTIC Pigtail 5Fr Procedure catheter ([id number]) Procedure Complications No complications Procedure Medications Medication Administration Route Dosage Oxygen NRB 12 l/min Refer to Anesthesia Notes for Sedation Medications Lidocaine 2% added to field 20 Heparin Flush Bag added to field 2 bags (1000units/500ml NS) Hemodynamics Rest HGB: 10.3 (g/dl) Heart Rate: 80 (bpm) Snapshots Pre Cath Intra NCS Post Cath Vital Signs Time Heart Resp SPO2 etCO2 NIBP (mmHg) Rhythm Pain Sedation Rate (ipm) (%) (mmHg) Status Level (bpm) 12:54:10 91 15 100 10.5 168/101(141) NSR 0 (11) 10(A) , No pain 12:58:26 81 14 98 0 128/77(101) NSR 0 (11) 9(A) , No pain 13:02:40 78 14 97 27 116/65(90) NSR 0 (11) 9(A) , No pain 13:06:50 72 10 97 27.7 124/63(91) NSR 0 (11) 9(A) , No pain 13:11:04 65 12 96 27.7 114/60(88) NSR 0 (11) 9(A) , No pain 13:15:12 66 14 97 27 115/61(87) NSR 0 (11) 9(A) , No pain 13:19:19 69 13 98 26.2 119/64(83) NSR 0 (11) 9(A) , No pain 13:23:25 77 12 100 24.7 138/77(107) NSR 0 (11) 9(A) , No pain 13:27:39 70 14 99 11.2 122/66(97) NSR 0 (11) 9(A) , No pain 13:31:49 66 14 99 9.7 117/65(80) NSR 0 (11) 9(A) , No pain 13:35:57 65 13 99 8.2 129/64(99) NSR 0 (11) 10(A) , No pain 13:42:28 62 10 99 0 117/64(94) NSR 0 (11) 10(A) , No pain Medications Time Medication Route Dose Verified Delivered Reason Notes Effe ctiveness by by 12:54:39 Oxygen NRB 12 Devon Katz Per l/min Stephane Pickard RN physician 12:54:43 Refer to Devon Katz Anesthesia Notes Stephane Pickard RN for Sedation Medications 12:55:22 Lidocaine 2% added 20ml Devontonie Osorio for local to vial Stephane Calderón MD anesthetic field 12:55:31 Heparin Flush added 2 Devontonie Osorio used for Bag to bags Stephane Calderón MD procedure (1000units/500ml field NS) Procedure Log Time Note 12:32:01 Procedure Status Elective Heart Cath (OP). 12:32:03 Gianna Pickard RN sent for patient. Start room use. 12:32:04 Time tracking: Regular hours (M-F 7:00 - 5:00) 12:32:08 Plan of Care:Hemodynamics will remain stable., Cardiac rhythm will remain stable., Comfort level will be maintained., Respiratory function will remain adequate., Patient/ family verbilizes understanding of procedure., Procedure tolerated without complication., Recovers from procedure without complications.. 12:32:10 Signed procedure consent form obtained from patient. 12:35:41 Nicol Rouse CRNA present and monitoring patient for TIVA. 12:37:33 Lab Result : BUN 14 mg/dl 12:37:33 Lab Result : Creatinine 0.9 mg/dl 12:37:33 Lab Result : eGFR NONAFRICAN 90 ml/min 12:37:33 Lab Result : Hemoglobin 10.3 g/dl 12:37:33 Lab Result : Hematocrit 32.6 % 12:39:48 Patient received from Pre/Post Procedure Room to CCL 1 Alert and oriented. Tansferred to table in Supine position. 12:39:50 Warm blankets applied, and nirmala hugger turned on for patient comfort. 12:39:50 Correct patient and procedure confirmed by team. 12:39:50 ECG and BP/O2 sat monitors applied to patient. 12::54 Vital chart was started 12::55 Baseline sample Acquired. 12::59 Rhythm: sinus rhythm 12::59 Full Disclosure recording started 12:53:05 Pre-procedure instructions explained to patient. 12:53:06 Pre-op teaching completed and patient verbalized understanding. 12:53:10 Family in waiting room. 12:53:15 Patient NPO since Midnight. 12:53:38 Is patient on blood thinner?Yes 12:53:57 ACC The patient was administered the following blood thiners within the last 24 hours: ACCEffient 12:53:59 Patient diabetic? No. 12:54:03 Previous problem with sedation/anesthesia? No ? 12:54:05 Snore? Yes 12:54:09 Sleep apnea? No 12:54:10 Deviated septum? No 12:54:11 Opens mouth fully? Yes 12:54:12 Sticks out tongue? Yes 12:54:13 Airway obstruction? No ? 12:54:15 Dentures? No ? 12:54:21 Patient pain scale 0/10 ?. 12:54:24 IV patent on arrival in left hand with 0.9% NaCl at [facility]. 12:54:26 Lab results completed and on chart. 12:54:39 Oxygen 12 l/min NRB was administered by Gianna Pickard RN; Per physician; 12:54:43 Refer to Anesthesia Notes for Sedation Medications was administered by Gianna Pickard RN; ; 12:55:03 Right Brachial area was prepped with chlora-prep and draped in sterile fashion 12:55:04 Alarms reviewed by R. N. 12:55:04 Sharps counted by scrub and verified by R.N. 12:55:22 Lidocaine 2% 20ml vial added to field was administered by Devon Calderón MD; for local anesthetic; 12:55:31 Heparin Flush Bag (1000units/500ml NS) 2 bags added to field was administered by Devon Calderón MD; used for procedure; 12:55:36 --------ALL STOP TIME OUT------ 12:55:37 Final Timeout: patient, procedure, and site verified with staff and physician. All members of the team are in agreement. 12:55:39 Right Brachial site verified by team. 12:55:42 Fire Safety Assessment: A--An alcohol-based skin anteseptic being used preoperatively., C--Open oxygen or nitrous oxide is being used., D--An ESU, laser, or fiber-optic light is being used. 12:55:45 Physical assessment completed. ASA score P 3 - A patient with severe systemic disease as per Devon Calderón MD. 12:55:48 1) 90+ Normal kidney functon but urine findings or structural abnormalities or genetic trait point to kidney disease. 12:55:51 Maximum allowable contrast dose (3.7 X eGFR X 0.75)250 ml. 12:55:54 Sedation plan: TIVA Medication:Propofol 12:56:34 Use device set CATH PACK 12:56:35 ACIST Syringe (80323) opened to sterile field. 12:56:35 ACIST Hand Control (65516) opened to sterile field. 12:56:36 ACIST Manifold (66578) opened to sterile field. 12:56:36 Medline Cath Pack ([id number]) opened to sterile field. 12:56:36 Bag Decanter (2002S) opened to sterile field. 12:56:37 EMERALD Guide Wire (472-146) opened to sterile field. 12:56:44 MBrace Wrist Support ([id number]) opened to sterile field. 12:56:45 SHEATH 6FR RAIN (7884107) opened to sterile field. 12:57:11 GLIDE WIRE ANGLE 260cm (LY5874) opened to sterile field. 12:57:14 Procedure started. 12:57:30 Local anesthetic to right brachial artery with Lidocaine 2% by Devon Calderón MD.INITIAL ACCESS ONLY 12:58:32 A 6 Fr Short sheath was inserted into the Right Brachial artery 12:59:54 A DIAGNOSTIC Pigtail 5Fr catheter ([id number]) was advanced over the wire and used for Procedure. 13:01:06 Abdominal angiogram w/ runoff was performed. 13:01:17 Right leg runoff performed. 13:01:59 Left leg runoff performed. 13:02:23 GLIDE WIRE ADVANCED THROUGH PIGTAIL. 13:02:30 SHEATH 6FR Brite Tip 90cm (177751W) opened to sterile field. 13:03:40 PIGTAIL EXHANGED OVER GLIDE WIRE 13:04:03 Sheath upsized to a 6 Fr Long. 13:04:19 LONG SHEATH EXCHANGED 13:04:28 CHOICE PT Extra Support J 300cm guide wire ([id number]) opened to sterile field. 13:04:40 LASER Turbo-Power 2.0 atherectomy catheter (848564) opened to sterile field. 13:05:47 INFLATOR Merit BasixCompak (OK8241) opened to sterile field. 13:06:40 CHOICE ES 300 ADVANCED ACROSS LESION 13:07:07 Laser pass to Left Common Femoral with Fluence of 60 and Rate of 40. 13:09:32 Laser total pulses delivered: 6162 13:09:37 Laser total treatment time: 2 minutes 32 seconds 13:12:03 Laser catheter removed. 13:18:52 Inflate balloon Inflation number: 1 A STELLAREX 4 x 40 DE Balloon ([id number]) was prepped and advanced across the Proximal Common Femoral, Left , then inflated to 13 MADISYN for 3:00 (min:sec) . 13:18:57 Balloon removed over the wire. 13:24:01 Inflate balloon Inflation number: 2 A STELLAREX 6 x 40 DE balloon ([id number]) was prepped and advanced across the Proximal Common Femoral, Left 90, then inflated to 13 MADISYN for 2:40 (min:sec) 0. 13:24:17 Balloon removed over the wire. 13:25:13 Wire removed. 13:25:46 J WIRE USED TO EXCHANGED LONG SHEATH FOR A SHORT 6F 13:26:31 SHEATH 6FR [place] (CUM625) opened to sterile field. 13:27:36 EXOSEAL 6Fr (EX600) opened to sterile field. 13:27:46 Sheath removed intact; hemostasis achieved with Exoseal to the Right Brachial artery. 13:27:48 Procedure ended.(Physican Out) 13:29:08 Contrast amount:Isovue 300 110ml. 13:29:13 Fluoroscopy dose: 374 mGy 13:29:13 Flurop Dose total: 374 13:29:21 Fluoroscopy time 08.30 minutes. 13:29:31 Dose Area Product 80531 mGy/cm. 13:30:06 Post-op/insertion site Right Brachial artery dressed using a 4 x 4 and Tegaderm. 13:31:15 Post-procedure physical assessment completed. ASA score P 3 - A patient with severe systemic disease as per Devon Calderón MD. 13:31:18 Post procedure rhythm: sinus rhythm 13:31:20 Estimated blood loss: 10 ml 13:31:25 Post procedure instruction explained to patient.Patient verbalizes understanding. 13:31:25 Patient needs reinforcement of post procedure teaching. 13:34:35 Procedure type changed to Cath procedure, Peripheral Cath Diagnostic Procedure, Echo Tech Peripheral Procedures, Ylmoc-Nbjczmr-Bjt-Off, Peripheral vascular Intervention, Atherectomy, Atherectomy Fem/Pop w/Plasty 13:36:59 BRACHIAL BAND INFLATED AT 18 ATMS 13:37:02 Procedure and supply charges have been captured, reviewed, submitted and are correct. 13:37:04 Procedure Complication : No complications 13:38:23 Vital chart was stopped 13:38:24 See physician's report for complete and final results. 13:38:26 Report given to Pre/Post Procedure Room. 13:38:32 Patient transfered to Pre/Post Procedure Room with Bed. 13:38:34 Procedure ended. 13:38:34 Full Disclosure recording stopped 13:38:40 End room use (Document Last) Intervention Summary Intervention Notes Time ActionType Lesion and Equipment Used Action# Pressure Duration Attributes 13:18:52 Inflate Proximal STELLAREX 4 x 40 1 13 03:00 balloon Common DE Balloon Femoral, ([id number]) Left 13:24:01 Inflate Proximal STELLAREX 6 x 40 2 13 02:40 balloon Common DE balloon Femoral, ([id number]) Left Device Usage Item Name Manufacture Quantity Catalog Number [facility] Lot# / Charge Number Stock Stock Serial# Code ACIST Syringe Acist 1 83143 057308 832171 98 7658 20 (06661) [employer] ACIST Hand Acist 1 99865 937853 373532 98 8087 5 Control (68788) [employer] ACIST Manifold Acist 1 65804 704839 181879 98 8104 5 (46270) [employer] Medline Cath Pack Medline 1 [id number] 285454 45169 98 8039 5 ([id number]) Bag Decanter Microtek 1 813395 07077 98 6180 5 () Medical Inc. EMERALD Guide Cardinal 1 502-455 431982 504439 99 9614 5 Wire (925-479) Health MBrace Wrist Advanced 1 140-0250-00 885046 76814 99 7859 5 Support Vascular (263775394) Dynamics SHEATH 6FR RAIN Cardinal 1 6499926 860330 4732827 99 9871 5 (9487683) Health GLIDE WIRE ANGLE Terumo 1 BW4460 761228 769704 99 9467 5 260cm (TH4592) DIAGNOSTIC Cardinal 1 [id number] 001261 234979 99 9683 5 Pigtail 5Fr Health catheter (518898Q) SHEATH 6FR Brite Cardinal 1 401-690M 341855 240307 99 9994 5 Tip 90cm Health (761150L) CHOICE PT Extra [place] 1 [id number] 964025 176490 99 8943 5 Support J 300cm Scientific guide wire ([id number]) LASER Turbo-Power Rebekah 1 420-050 954026 911277610 99 9983 5 2.0 atherectomy Healthcare catheter (583056) (121651) INFLATOR Merit Merit 1 HQ0536 740408 010248 99 2749 15 [facility] (AG7841) STELLAREX 4 x 40 Rebekah 1 [id number] 234958 1310115 99 9998 5 DE Balloon Healthcare ([id number]) (936671) STELLAREX 6 x 40 Rebekah 1 [id number] 194802 864399 99 9994 5 DE balloon Healthcare ([id number]) (456847) SHEATH 6FR Terumo 1 WZG120 414617 072529 99 5487 40 [place] (CCV750) EXOSEAL 6Fr Cardinal 1 EX600 015935 086768 99 6449 10 (EX600) Health Signature Audit [place] Stage Time Signature Unsigned Intra-Procedure 04/20/[address] 1:43:24 PM RT(R) Signatures Performing Physician : Signature : Devon Calderón MD Date : Time : Monitor : Court Patterson Signature : RT Date : Time : Nurse : Buffie Pickard RN Signature : Date : Time : [address] [place] [address]
[2019-04-20] MEDS ORDERED: PEPCID AC20 MG PO (11:16)
[2019-04-20] MEDS ORDERED: OMEPRAZOLE40 MG PO (11:16)
[2019-04-20 11:24] VITALS: BP 154/70; Ht 175.3 cm; Wt 86.4 kg
[2019-04-20 11:41] LABS: BASOPHILS 0.4 % (0-2); EOSINOPHILS 0.7 % (0-7); HEMATOCRIT 32.6 % (42.0-54.0); HEMOGLOBIN 10.3 g/dL (13.5-17.5); IMMATURE GRANULOCYTES 0.2 % (0-5); LYMPHOCYTES 30.3 % (15-50); MCH 22.5 pg (26.0-34.0); MCHC 31.6 g/dL (31.0-37.0); MCV 71.2 fL (80.0-100.0); MEAN PLATELET VOLUME 9.3 fL (7.4-10.4); NEUTROPHILS 59.4 % (40-80); RBC 4.58 10x6/uL (4.20-6.10); RDW 16.4 % (11.5-14.5); WBC 9.8 10x3/uL (4.8-10.8)
[2019-04-20 11:47] LABS: PLATELET COUNT 250 10x3/uL (130-400)
[2019-04-20 12:09] LABS: CALC OSMOLALITY 279 mosm/kg (275-300); CALCIUM 8.9 mg/dL (8.5-10.1); CARBON DIOXIDE 24.8 mmol/L (21.0-32.0); CHLORIDE - SERUM 104 mmol/L (98-107); CREATININE - SERUM 0.9 mg/dL (0.6-1.3); GLUCOSE 109 mg/dL (74-106); POTASSIUM - SERUM 4.5 mmol/L (3.5-5.1); SODIUM 139 mmol/L (136-145); UREA NITROGEN 14 mg/dL (7-18); eGFR NON AFRICAN AMERICAN > 90 mL/min (90-120)
--- NOTE | 2019-04-20 13:55 | NUR ---
PATIENT ARRIVED TO ROOM 3, PLACED ON CM. VSS. RIGHT BRACHIAL SITE SHOWS NO S/S OF BLEEDING OR HEMATOMA.
--- NOTE | 2019-04-20 14:10 | NUR ---
PATIENT VOIDED 200 ML URINE WITHOUT DIFFICULTY. VSS ON 2L NC. RIGHT BRACHIAL SITE IS CDI, NO S/S OF BLEEDING OR HEMATOMA. PATIENT C/O FEELING COLD, MACK HUGGER TURNED ON PER REQUEST. PRESENT AT BEDSIDE. WILL CONTINUE TO MONITOR.
--- NOTE | 2019-04-20 14:40 | NUR ---
PATIENT GIVEN ACETMINOPHEN-HYDROCODONE FOR PAIN ORDERED. VSS ON 2L NC. RIGHT BRACHIAL SITE IS CDI, NO S/S OF BLEEDING OR HEMATOMA. NO N/V, TOLERATING PO FLUIDS.
--- NOTE | 2019-04-20 15:10 | NUR ---
5CC OF AIR REMOVED FROM Z BAND AT BRACHIAL SITE, NO S/S OF BLEEDING OR HEMATOMA. PATIENT STATES THAT PAIN IS "GETTING BETTER". VSS ON 1L NC. NO N/V.
--- NOTE | 2019-04-20 15:40 | NUR ---
PATIENT RESTING, VSS ON 1L NC. RIGHT BRACHIAL SITE IS CDI, NO S/S OF BLEEDING OR HEMATOMA. 5CC OF AIR REMOVED FROM Z BAND. PATIENT STATES THAT PAIN IN ARM IS "MUCH BETTER". NO N/V.
--- NOTE | 2019-04-20 16:10 | NUR ---
REMAINING AIR REMOVED FROM Z BAND AND DRESSING APPLIED AT RIGHT BRACHIAL SITE, NO S/S OF BLEEDING OR HEMATOMA. NO C/O PAIN, NUMBNESS, OR TINGLING. VSS ON ROOM AIR. PATIENT SITTING UP IN BED, GIVEN TURKEY SANDWICH AND SPRITE PER REQUEST, NO N/V.
--- NOTE | 2019-04-20 16:40 | NUR ---
PATIENT INTERMITTENTLY RESTING, VSS ON ROOM AIR. RIGHT BRACHIAL DRESSING IS CDI, NO S/S OF BLEEDING OR HEMATOMA. NO C/O PAIN, NUMBNESS, OR TINGLING. TOLERATING PO FLUIDS, NO N/V.
--- NOTE | 2019-04-20 17:00 | NUR ---
RIGHT BRACHIAL SITE IS CDI, NO S/S OF BLEEDING OR HEMATOMA. IV REMOVED. VSS ON ROOM AIR. WRITTEN AND VERBAL DISCHARGE INSTRUCTIONS AND MEDICATION EDUCATION GIVEN TO PATIENT, PATIENT VOICES UNDERSTANDING. PATIENT DISCONNECTED FROM MONITOR TO GET DRESSED AT THIS TIME.
--- NOTE | 2019-04-20 17:20 | NUR ---
PATIENT VOIDED WITHOUT DIFFICULTY. RIGHT BRACHIAL DRESSING IS CDI, NO S/S OF BLEEDING OR HEMATOMA. PATIENT TRANSPORTED VIA WHEELCHAIR TO CAR WITH FAMILY DRIVING, ALL BELONGINGS WITH PATIENT.
--- NOTE | 2019-05-02 14:31 | OP ---
PATIENT NAME: COLIN STORM MEDICAL RECORD: [id number] :60 LOCATION:D.CAT ADMISSION DATE: SURGEON: TEAGAN LEWIS MD DATE OF OPERATION: 04/20/2019 PROCEDURES: 1. Laser atherectomy, left common femoral. 2. TREAD CUTTER, drug-eluting balloon, left common femoral. 3. Aortofemoral runoff. 4. Abdominal aortography. PROCEDURE IN DETAIL: After informed consent was obtained and after detailed explanation of risks, benefits as well as alternative therapies, the patient elected to proceed with angiogram and angioplasty. The right brachial area was prepped and draped in normal sterile fashion. Right brachial artery was cannulated via modified Seldinger technique with placement of 6-Turkish sheath. All catheters exchanged through this sheath. FINDINGS: Abdominal aortography was performed. The catheter was advanced for aortofemoral runoff. Abdominal aortography reveals no significant abdominal aortic disease, no dissection or aneurysm formation. RIGHT LEG: A. Iliac: The common iliac has previously placed stent that is widely patent with no significant restenosis. Remainder of the iliacs have no significant stenosis. B. Femoral system: The common femoral has a previously placed stent that is widely patent with no significant restenosis. No disease elsewise throughout the common femoral, deep femoral, or superficial femoral. C. Popliteal and infrapopliteal vessels are widely patent with good threshold into the foot. LEFT LEG: A. Iliac: The common internal and external iliacs have mild irregularities, but no flow-limiting stenosis. B. Femoral system: The common femoral has a previously placed stent with up to 80% to 90% in-stent restenosis at the distal end of this. Otherwise, femoral system has no significant disease. C. Popliteal and infrapopliteal vessels are widely patent. In-stent restenosis in the left common femoral was treated with laser atherectomy with a peripheral turbo catheter. Multiple passes were made at 60/40. We then ballooned this with a 4.0 and 6.0 drug-eluting balloon. Result was 0% residual. OVERALL IMPRESSION: Successful TREAD CUTTER with drug-eluting balloon and laser atherectomy of the left common femoral artery going from in-stent restenosis up to 80% and 90% to 0% residual. TRANSINT:[id number] Voice Confirmation ID: [id number] DOCUMENT ID: [id number] OPERATIVE REPORT [id number] COLIN STORM TEAGAN CHOI MD at 1431 CC: [id number] DICTATION DATE: 04/20/19 1348 DIRECTOR STUDENT UNION: 04/20/19 1423 DEP CLI 04/20/[address] [address]
== END 2019-04-20 17:20 ==
LOC: D.CATH 10:57
PROVIDERS: ATTEND Internal Medicine Interventional Cardiology
DX: I70.212 Atherosclerosis of native arteries of extremities with intermittent claudication, left leg (principal); T82.856A Stenosis of peripheral vascular stent, initial encounter; Z01.812 Encounter for preprocedural laboratory examination